=== PATIENT | male | born 1990 | race American Indian/Alaskan Native ===

== ENCOUNTER 2022-05-26 11:45 | Inpatient (IN) | payer SELFPAY ==
[2022-05-26] MEDS ORDERED: SODIUM CHLORIDE 0.9% 1000 ML 1,000 ML IV ONE ×3 (12:03→17:47)
[2022-05-26] MEDS ORDERED: charcoal activated SOLUTION 25 GM/120 ML PO ONE (12:04)
[2022-05-26 12:25] LABS: Basophils # (Auto) 0.1 K/mm3 (0.0-0.1); Basophils % (Auto) 1.1 % (0.0-1.8); Eosinophils # (Auto) 0.1 K/mm3 (0.0-0.4); Eosinophils % (Auto) 1.6 % (0.0-4.3); Hematocrit 43.1 % (35.5-45.6); Lymphocytes # (Auto) 1.9 K/mm3 (1.2-5.4); Lymphocytes % (Auto) 28.6 % (13.4-35.0); Mean Corpuscular HGB Conc 33 % (32-34); Mean Corpuscular Volume 94 fl (84-94); Monocytes # (Auto) 0.6 K/mm3 (0.0-0.8); Monocytes % (Auto) 8.4 % (0.0-7.3); Platelet Count 233 K/mm3 (140-440); Red Blood Count 4.58 M/mm3 (3.65-5.03); Red Cell Distribution Width 14.5 % (13.2-15.2)
--- NOTE | 2022-05-26 12:34 | XRay Report ---
CHEST 1 VIEW 05/26/2022 12:10 PM INDICATION / CLINICAL INFORMATION: Altered Mental Status. COMPARISON: None available. FINDINGS: SUPPORT DEVICES: None. HEART / MEDIASTINUM: No significant abnormality. LUNGS / PLEURA: No significant pulmonary or pleural abnormality. No pneumothorax. ADDITIONAL FINDINGS: No significant additional findings. IMPRESSION: 1. No acute findings. Signer Name: Maxx Hunt Jr, MD Signed: 05/26/2022 12:30 PM Workstation Name: [id number]
[2022-05-26 12:38] LABS: INR 0.94 (0.87-1.13)
[2022-05-26 12:46] LABS: Alanine Aminotransferase 17 units/L (7-56); Albumin 4.2 g/dL (3.9-5); BUN/Creatinine Ratio 9; Blood Urea Nitrogen 7 mg/dL (9-20); Calcium 8.8 mg/dL (8.4-10.2); Hemolysis Index 8
[2022-05-26] MEDS ORDERED: DEXTROSE 5% IV ONE ×3 (12:54→17:56)
[2022-05-26] MEDS ORDERED: ACETADOTE IV ONE ×3 (12:54→17:56)
[2022-05-26] MEDS ORDERED: WATER IV ONE ×3 (12:54→17:56)
--- NOTE | 2022-05-26 13:31 | History and Physical Report ---
History of Present Illness Chief complaint: I took a bunch of pills History of present illness: 31 YO Male with MDD with prior Suicide Attempt presents to ED for evaluation. Patient reports "I took a bunch of pills". Patient states that he ingested approximately 20 Tylenol 500 mg tablets within the past 1 hour in an attempt to take his own life. Patient knowledges feeling depressed, hopeless, and does not have the will to live. EMS was notified and upon arrival the patient was found to be in distress and subsequently transported to [facility] for further care and evaluation of the aforementioned symptoms. The patient was seen and evaluated in the emergency department. All lab and imaging studies reviewed. Patient found to have elevated acetaminophen levels after 1 hour. Patient found to have Tylenol toxicity secondary to Tylenol overdose in a suicide attempt. A 1013 was placed. The patient was admitted to [facility] due to increased risk of worsening symptoms after medical stabilization. Poison control notified. No reports of fever, chills, chest pain, palpitation, productive cough, skin rash, recent co ntact, known exposure to COVID-19. No prior admission for review. No medication listed at time of admission for reconciliation. Advanced care planning conducted in ED. Past History Past Medical History: other (See HPI) Past Surgical History: No surgical history, Other (Reviewed) Social history: single. denies: smoking, alcohol abuse, prescription drug abuse Family history: hypertension Medications and Allergies Allergies Allergy/AdvReac Type Severity Reaction Status Date / Time No Known Allergies Allergy Verified 05/26/22 11:56 Active Meds: Active Medications Acetylcysteine 9,000 mg/ (Dextrose) 245 mls @ 200 mls/hr IV ONCE ONE Stop: 05/26/22 13:53 Acetylcysteine 3,000 mg/ (Dextrose) 515 mls @ 125 mls/hr IV ONCE ONE Stop: 05/26/22 17:55 Acetylcysteine 5,800 mg/ (Dextrose) 1,029 mls @ 62.5 mls/hr IV ONCE ONE Stop: 05/27/22 09:55 Sodium Chloride (Nacl 0.9% 1000 Ml) 1,000 mls @ 999 mls/hr IV BOLUS ONE Stop: 05/26/22 14:15 Review of Systems Constitutional: no weight loss, no weight gain, no fever, no chills Ears, nose, mouth and throat: no ear pain, no tinnitis, no decreased hearing, no nose pain, no nasal discharge Cardiovascular: no chest pain, no orthopnea, no palpitations, no rapid/irregular heart beat, no syncope Respiratory: no cough, no excessive sputum, no shortness of breath, no dyspnea on exertion Gastrointestinal: no abdominal pain, no nausea, no vomiting, no constipation, no change in bowel habits, no hematemesis Genitourinary Male: no hematuria, no flank pain, no discharge, no urinary frequency, no nocturia, no erectile dysfunction Rectal: no pain, no incontinence Musculoskeletal: no arm numbness/tingling, no shooting leg pain, no leg numbnes s/tingling Integumentary: no rash, no redness, no wounds, no jaundice Neurological: no head injury, no paralysis, no parathesias, no tingling, no seiz ures, no tremors, no ataxia Psychiatric: depression, anhedonia, irritability, sadness/tearfullness, mood swings, no anxiety Endocrine: no cold intolerance, no heat intolerance, no polyphagia, no nocturia Hematologic/Lymphatic: no easy bruising, no easy bleeding Allergic/Immunologic: no urticaria, no wheezing Exam - Constitutional Vitals: Temp Pulse Resp BP Pulse Ox 98.1 F 71 14 117/85 98 05/26/22 11:54 05/26/22 11:54 05/26/22 11:54 05/26/22 11:54 05/26/22 11:54 General appearance: Present: mild distress - EENT Eyes: Present: PERRL ENT: hearing intact, clear oral mucosa - Neck Neck: Present: supple, normal ROM - Respiratory Respiratory effort: normal Respiratory: bilateral: CTA - Cardiovascular Heart Sounds: Present: S1 & S2. Absent: rub, click - Extremities Extremities: pulses symmetrical, No edema Peripheral Pulses: within normal limits - Abdominal General gastrointestinal: Present: soft, non-tender, non-distended, normal bowel sounds Male genitourinary: Present: normal - Integumentary Integumentary: Present: clear, warm, dry - Musculoskeletal Musculoskeletal: gait normal, strength equal bilaterally - Psychiatric Psychiatric: appropriate mood/affect, intact judgment & insight - Neurologic Neurologic: CNII-XII intact, moves all extremities HEART Score - HEART Score Troponin: Troponin T < 0.010 ng/mL (0.00-0.029) 05/26/22 12:03 Results - Labs CBC & Chem 7: 05/26/22 12:03 05/26/22 12:03 Labs: Abnormal lab results 05/26/22 05/26/22 05/26/22 Range/Units 12:03 12:03 12:15 [place] % (Auto) 8.4 H (0.0-7.3) % BUN 7 L (9-20) mg/dL Glucose 105 H (75-100) mg/dL Total Creatine Kinase 181 H (55-170) units/L Salicylates < 0.3 L (2.8-20.0) mg/dL Acetaminophen (10.0-30.0) ug/mL 05/26/22 Range/Units 12:15 [place] % (Auto) (0.0-7.3) % BUN (9-20) mg/dL Glucose (75-100) mg/dL Total Creatine Kinase (55-170) units/L Salicylates (2.8-20.0) mg/dL Acetaminophen 147.8 H (10.0-30.0) ug/mL Assessment and Plan - Patient Problems (1) Tylenol toxicity Current Visit: Yes Status: Acute Qualifiers: Encounter type: initial encounter Injury intent: intentional self-harm Qualified Code(s): T39.1X2A - Poisoning by 4-Aminophenol derivatives, intentional self-harm, initial encounter Plan to address problem: Post control notified, initiate therapy with Mucomyst, serial acetaminophen levels, IV fluid resuscitation therapy as clinical indicated, supportive care. (2) Suicide attempt Current Visit: Yes Status: Acute Plan to address problem: 1013 in place, mental health team consulted. (3) Major depression Current Visit: Yes Status: Acute Qualifiers: Major depression episode severity: severe Plan to address problem: Mental health team consulted, supportive care, one-to-one sitter. (4) DVT prophylaxis Current Visit: Yes Status: Acute Plan to address problem: SCDs bilateral lower extremities while in bed (5) Advance care planning Current Visit: Yes Status: Acute Plan to address problem: Disease education conducted, care plan discussed, diagnoses discussed, prognosis discussed, patient is full code, +30 minutes. (6) Preventative health care Current Visit: Yes Status: Acute Plan to address problem: Patient counseled regarding risk factor reduction, safe driving, outpatient mental health follow-up, outpatient follow-up with primary care physician for all age and risk factor appropriate screening test. +30 minutes.
--- NOTE | 2022-05-26 13:38 | Emergency Department Report ---
ED General Adult HPI - General Chief complaint: Overdose Stated complaint: SUICIDE ATTEMPT PUI?: No Time Seen by Provider: 05/26/22 12:00 Source: EMS Mode of arrival: Stretcher Limitations: No Limitations - History of Present Illness Initial comments: pt reported he took 20, 500mg tylenol within the past hour in a suicide attempt -: Sudden, hour(s) (1) Severity scale (0 -10): 0 Improves with: none Worsens with: none Associated Symptoms: nausea/vomiting. denies: denies other symptoms, confusion, chest pain, headaches, loss of appetite, malaise Treatments Prior to Arrival: none - Related Data Allergies Allergy/AdvReac Type Severity Reaction Status Date / Time No Known Allergies Allergy Verified 05/26/22 11:56 ED Review of Systems ROS: Stated complaint: SUICIDE ATTEMPT Other details as noted in HPI Constitutional: denies: chills, fever Eyes: denies: eye pain, eye discharge, vision change ENT: denies: ear pain, throat pain Respiratory: denies: cough, shortness of breath, wheezing Cardiovascular: denies: chest pain, palpitations Endocrine: no symptoms reported Gastrointestinal: denies: abdominal pain, nausea, diarrhea Genitourinary: denies: urgency, dysuria Musculoskeletal: denies: back pain, joint swelling, arthralgia Skin: denies: rash, lesions Neurological: denies: headache, weakness, paresthesias Psychiatric: denies: anxiety, depression Hematological/Lymphatic: denies: easy bleeding, easy bruising ED Past Medical Hx - Past Medical History Previous Medical History?: No Hx Hypertension: No Additional medical history: previous suicide attempt ED Physical Exam - General Limitations: No Limitations General appearance: alert, anxious - Head Head exam: Present: atraumatic, normocephalic - Eye Eye exam: Present: normal appearance - ENT ENT exam: Present: mucous membranes moist - Neck Neck exam: Present: normal inspection - Respiratory Respiratory exam: Present: normal lung sounds bilaterally. Absent: respiratory distress - Cardiovascular Cardiovascular Exam: Present: regular rate, normal rhythm. Absent: systolic murmur, diastolic murmur, rubs, gallop - GI/Abdominal GI/Abdominal exam: Present: soft, normal bowel sounds - Rectal Rectal exam: Present: deferred - Extremities Exam Extremities exam: Present: normal inspection - Back Exam Back exam: Present: normal inspection - Neurological Exam Neurological exam: Present: alert, oriented X3 - Psychiatric Psychiatric exam: Present: normal affect, normal mood - Skin Skin exam: Present: warm, dry, intact, normal color. Absent: rash ED Course Vital Signs 05/26/22 11:54 Temperature 98.1 F Pulse Rate 71 Respiratory 14 Rate Blood Pressure 117/85 [Left] O2 Sat by Pulse 98 Oximetry ED Medical Decision Making - Lab Data Result diagrams: 05/26/22 12:03 05/26/22 12:03 - EKG Data -: EKG Interpreted by Me EKG shows normal: sinus rhythm Rate: normal - Radiology Data Radiology results: report reviewed, image reviewed - Medical Decision Making Poison control contacted , first level is 147 will start NAC ,1013 Critical care attestation.: If time is entered above; I have spent that time in minutes in the direct care of this critically ill patient, excluding procedure time. ED Disposition Clinical Impression: Overdose by acetaminophen, Suicide attempt Disposition: ADMITTED INPATIENT Is pt being admited?: Yes Does the pt Need Aspirin: No Condition: Critical
[2022-05-26] MEDS ORDERED: IBUPROFEN 600 MG TAB PO PRN (14:00)
[2022-05-26] MEDS ORDERED: HYDROmorphone 0.5 MG/0.5 ML INJ IV PRN (14:00)
[2022-05-26] MEDS ORDERED: ALBUTEROL 2.5 MG/3 ML NEBU IH PRN (14:00)
[2022-05-26] MEDS ORDERED: MORPHINE 2 MG/1 ML INJ IV PRN (14:00)
[2022-05-26] MEDS ORDERED: oxyCODONE /ACETAMINOPHEN 5-325MG TAB PO PRN (14:00)
--- NOTE | 2022-05-26 14:48 | Procedure Note ---
Date of procedure: 05/26/22 Pre-op diagnosis: Tylenol Overdose Post-op diagnosis: same Procedure: Right femoral central lumen catheter placed under ultrasound guidance After informed consent was obtained the patient was prepped and draped in usual sterile fashion. A timeout was taken to verify the correct patient, correct procedure, and the correct operative site with the patient's nurse at bedside. Local anesthesia obtained with 1% lidocaine. The Seldinger technique was utiliz to access the right femoral vein under ultrasound guidance. A seeker needle was then advanced into the right femoral vein without difficulty. A guidewire was then advanced via the seeker needle into the right femoral vein and the seeker needle subsequently removed over the guidewire. A scalpel was used to incise the skin at the insertion site. A dilator was then advanced over the guidewire into the right femoral vein and subsequently removed. A preflush triple-lumen catheter was then advanced into the right femoral vein without difficulty and the guidewire subsequently removed. All 3 ports flush and drawl with ease. 3-0 silk suture was then utilized to suture the triple-lumen catheter in place. A Biopatch was placed at the insertion site. A sterile dressing was utilized to cover the triple-lumen catheter. Complications none. Estimated blood loss minimal. Specimens none Anesthesia: local Surgeon: GERTRUDE AMAYA Estimated blood loss: minimal Pathology: none Condition: stable Disposition: other
[2022-05-26] MEDS ORDERED: ONDANSETRON 4 MG/2 ML INJ IV PRN (16:19)
[2022-05-26 20:42] LABS: Benzodiazepines Screen,Urine Negative; Cannabinoid Screen,Urine Negative; Cocaine Screen,Urine Negative; Methadone Screen,Urine Negative; Opiate Screen,Urine Negative
[2022-05-26 20:56] LABS: Amphetamine Screen,Urine Positive
[2022-05-26 21:15] LABS: Bacteria,Urine 1+ /HPF (Negative); Mucus,Urine 3+ /HPF
[2022-05-26 21:33] LABS: Bilirubin,Urine Negative (Negative); Blood,Urine Negative (Negative); Color,Urine Yellow (Yellow); Urobilinogen,Urine < 2.0 mg/dL (<2.0)
[2022-05-27 04:51] LABS: Basophils # (Auto) 0.1 K/mm3 (0.0-0.1); Basophils % (Auto) 0.6 % (0.0-1.8); Eosinophils # (Auto) 0.1 K/mm3 (0.0-0.4); Eosinophils % (Auto) 1.3 % (0.0-4.3); Hematocrit 40.2 % (35.5-45.6); Hemoglobin 12.9 gm/dl (11.8-15.2); Lymphocytes # (Auto) 2.7 K/mm3 (1.2-5.4); Lymphocytes % (Auto) 29.4 % (13.4-35.0); Mean Corpuscular HGB Conc 32 % (32-34); Mean Corpuscular Volume 95 fl (84-94); Monocytes # (Auto) 0.7 K/mm3 (0.0-0.8); Monocytes % (Auto) 7.8 % (0.0-7.3); Platelet Count 206 K/mm3 (140-440); Red Blood Count 4.25 M/mm3 (3.65-5.03); Red Cell Distribution Width 14.6 % (13.2-15.2)
[2022-05-27 05:11] LABS: Alanine Aminotransferase 19 units/L (7-56); Albumin 3.3 g/dL (3.9-5); Blood Urea Nitrogen 6 mg/dL (9-20); Calcium 8.2 mg/dL (8.4-10.2); Hemolysis Index 4
[2022-05-27 05:12] LABS: BUN/Creatinine Ratio 10
--- NOTE | 2022-05-27 10:31 | Electrocardiograph Report ---
[facility] Test Date: 2022-05-26 Test Time: 14:56:40 Pat Name: VIOLA BOYCE Department: Room: A266 1 Gender: M Sagger Soak: FOX : 1990 Requested By: STACY ORTA Order Number: [id number] Reading MD: Bebeto Parham Measurements Intervals [place] Rate: 57 P: 17 RI: 189 QRS: 68 QRSD: 85 T: 42 QT: 401 QTc: 389 Interpretive Statements Sinus bradycardia ST elev, probable normal early repol pattern No previous ECG available for comparison Electronically Signed On 05-27-2022 10:31:12 EDT by Bebeto Parham
--- NOTE | 2022-05-27 11:24 | Progress Note ---
Assessment and Plan Assessment and plan: 31 YO Male with MDD with prior Suicide Attempt presents to ED for evaluation. Patient reports "I took a bunch of pills". Patient states that he ingested approximately 20 Tylenol 500 mg tablets within the past 1 hour in an attempt to take his own life. Patient knowledges feeling depressed, hopeless, and does not have the will to live. EMS was notified and upon arrival the patient was found to be in distress and subsequently transported to [facility] for further care and evaluation of the aforementioned symptoms. The patient was seen and evaluated in the emergency department. All lab and imaging studies reviewed. Patient found to have elevated acetaminophen levels after 1 hour. Patient found to have Tylenol toxicity secondary to Tylenol overdose in a suicide attempt. A 1013 was placed. The patient was admitted to [facility] due to increased risk of worsening symptoms after medical stabilization. Poison control notified. No reports of fever, chills, chest pain, palpitation, productive cough, skin rash, recent contact, known exposure to COVID-19. No prior admission for review. No medication listed at time of admission for reconciliation. Advanced care planning conducted in ED. 05/27: Patient seen and examined discussed extensively still feels suicidal. Of gone ahead to consult psych team for further management. Continue 1013 at this time until evaluated by psych team. Also discussed her CODE STATUS with the patient for 35 minutes discussing the impact of his clinical condition and also the decision he made he verbalized understanding wants to be full code. Preventive care discussion had with the patient on liver management major depression social support services that is available patient verbalized understanding. He says he has a supportive family (1) Tylenol toxicityintentional overdose of acetaminophen Current Visit: Yes Status: Acute Qualifiers: Encounter type: initial encounter Injury intent: intentional self-harm Qualified Code(s): T39.1X2A - Poisoning by 4-Aminophenol derivatives, intentional self-harm, initial encounter Plan to address problem: Post control notified, initiate therapy with Mucomyst, serial acetaminophen lev els, IV fluid resuscitation therapy as clinical indicated, supportive care. Psych consult (2) Suicide attempt Current Visit: Yes Status: Acute Plan to address problem: [address]3 in place, mental health team consulted. (3) Major depression Current Visit: Yes Status: Acute Qualifiers: Major depression episode severity: severe Plan to address problem: Mental health team consulted, supportive care, one-to-one sitter. (4) amphetamine abuse (5) DVT prophylaxis Current Visit: Yes Status: Acute Plan to address problem: SCDs bilateral lower extremities while in bed (6) Advance care planning Current Visit: Yes Status: Acute Plan to address problem: Disease education conducted, care plan discussed, diagnoses discussed, prognosis discussed, patient is full code, +30 minutes. (7) Preventative health care Current Visit: Yes Status: Acute Plan to address problem: Patient counseled regarding risk factor reduction, safe driving, outpatient mental health follow-up, outpatient follow-up with primary care physician for all age and risk factor appropriate screening test. +30 minutes. History Interval history: Patient seen and examined this morning denies any chest pain nausea vomiting. Feeling depressed. Hospitalist Physical - Physical exam Narrative exam: VITAL SIGNS: Reviewed. GENERAL: The patient appears normally developed, Vital signs as documented. HEAD: No signs of head trauma. EYES: Pupils are equal. Extraocular motions intact. EARS: Hearing grossly intact. MOUTH: Oropharynx is normal. NECK: No adenopathy, no JVD. CHEST: Chest with clear breath sounds bilaterally. No wheezes, rales, or rhonchi. CARDIAC: Regular rate and rhythm. S1 and S2, without murmurs, gallops, or rubs. VASCULAR: No Edema. Peripheral pulses normal and equal in all extremities. ABDOMEN: Soft, non tender and non distended. No rebound or guarding, and no masses palpated. Bowel Sounds normal. MUSCULOSKELETAL: Good range of motion of all major joints. Extremities without clubbing, cyanosis or edema. NEUROLOGIC EXAM: Alert and oriented x 3 No focal sensory or strength deficits. Speech normal. Follows commands. PSYCHIATRIC: Mood normal. SKIN: detail exam as documented in skin assessment - Constitutional Vitals: Temp Pulse Resp BP Pulse Ox 98.1 F 53 L 14 114/73 96 05/26/22 11:54 05/27/22 06:16 05/27/22 06:16 05/27/22 06:16 05/27/22 06:16 General appearance: Present: mild distress HEART Score - HEART Score Troponin: Troponin T < 0.010 ng/mL (0.00-0.029) 05/26/22 12:03 Results - Labs CBC & Chem 7: 05/27/22 04:13 05/27/22 04:13 Labs: Laboratory Last Values WBC 9.0 K/mm3 (4.5-11.0) 05/27/22 04:13 RBC 4.25 M/mm3 (3.65-5.03) 05/27/22 04:13 Hgb 12.9 gm/dl (11.8-15.2) 05/27/22 04:13 Hct 40.2 % (35.5-45.6) 05/27/22 04:13 MCV 95 fl (84-94) H 05/27/22 04:13 MCH 30 pg (28-32) 05/27/22 04:13 MCHC 32 % (32-34) 05/27/22 04:13 RDW 14.6 % (13.2-15.2) 05/27/22 04:13 Plt Count 206 K/mm3 (140-440) 05/27/22 04:13 Lymph % (Auto) 29.4 % (13.4-35.0) 05/27/22 04:13 [place] % (Auto) 7.8 % (0.0-7.3) H 05/27/22 04:13 Eos % (Auto) 1.3 % (0.0-4.3) 05/27/22 04:13 Baso % (Auto) 0.6 % (0.0-1.8) 05/27/22 04:13 Lymph # (Auto) 2.7 K/mm3 (1.2-5.4) 05/27/22 04:13 [place] # (Auto) 0.7 K/mm3 (0.0-0.8) 05/27/22 04:13 Eos # (Auto) 0.1 K/mm3 (0.0-0.4) 05/27/22 04:13 Baso # (Auto) 0.1 K/mm3 (0.0-0.1) 05/27/22 04:13 Seg Neutrophils % 60.9 % (40.0-70.0) 05/27/22 04:13 Seg Neutrophils # 5.5 K/mm3 (1.8-7.7) 05/27/22 04:13 PT 13.6 Sec. (12.2-14.9) 05/26/22 12:03 INR 0.94 (0.87-1.13) 05/26/22 12:03 Sodium 139 mmol/L (137-145) 05/27/22 04:13 Potassium 3.7 mmol/L (3.6-5.0) 05/27/22 04:13 Chloride 110.2 mmol/L (98-107) H 05/27/22 04:13 Carbon Dioxide 21 mmol/L (22-30) L 05/27/22 04:13 Anion Gap 12 mmol/L 05/27/22 04:13 BUN 6 mg/dL (9-20) L 05/27/22 04:13 Creatinine 0.6 mg/dL (0.8-1.3) L 05/27/22 04:13 Estimated GFR > 60 ml/min 05/27/22 04:13 BUN/Creatinine Ratio 10 % 05/27/22 04:13 Glucose 88 mg/dL (75-100) 05/27/22 04:13 Calcium 8.2 mg/dL (8.4-10.2) L 05/27/22 04:13 Total Bilirubin 0.60 mg/dL (0.1-1.2) 05/27/22 04:13 AST 15 units/L (5-40) 05/27/22 04:13 ALT 19 units/L (7-56) 05/27/22 04:13 Alkaline Phosphatase 56 units/L (35-129) 05/27/22 04:13 Total Creatine Kinase 181 units/L (55-170) H 05/26/22 12:03 Troponin T < 0.010 ng/mL (0.00-0.029) 05/26/22 12:03 Total Protein 5.2 g/dL (6.3-8.2) L 05/27/22 04:13 Albumin 3.3 g/dL (3.9-5) L 05/27/22 04:13 Albumin/Globulin Ratio 1.7 % 05/27/22 04:13 Urine Color Yellow (Yellow) 05/26/22 16:42 Urine Turbidity Hazy (Clear) 05/26/22 16:42 Urine pH 6.0 (5.0-7.0) 05/26/22 16:42 Ur Specific [place] 1.020 (1.003-1.030) 05/26/22 16:42 Urine Protein 30 mg/dl mg/dL (Negative) 05/26/22 16:42 Urine Glucose (UA) Negative mg/dL (Negative) 05/26/22 16:42 Urine Ketones Negative mg/dL (Negative) 05/26/22 16:42 Urine Blood Negative (Negative) 05/26/22 16:42 Urine Nitrite Negative (Negative) 05/26/22 16:42 Ur Reducing Substances Not Reportable 05/26/22 16:42 Urine Bilirubin Negative (Negative) 05/26/22 16:42 Urine Ictotest Not Reportable 05/26/22 16:42 Urine Urobilinogen < 2.0 mg/dL (<2.0) 05/26/22 16:42 Ur Leukocyte Esterase Negative (Negative) 05/26/22 16:42 Urine WBC (Auto) 156.0 /HPF (0.0-6.0) H 05/26/22 16:42 Urine RBC (Auto) 13.0 /HPF (0.0-6.0) 05/26/22 16:42 U Epithel Cells (Auto) 7.0 /HPF (0-13.0) 05/26/22 16:42 Urine Bacteria (Auto) 1+ /HPF (Negative) 05/26/22 16:42 Urine WBC Clumps 2+ /HPF 05/26/22 16:42 Urine Mucus 3+ /HPF 05/26/22 16:42 Urine Yeast (Budding) 1+ /HPF 05/26/22 16:42 Salicylates < 0.3 mg/dL (2.8-20.0) L 05/26/22 12:15 Urine Opiates Screen Negative 05/26/22 16:42 Urine Methadone Screen Negative 05/26/22 16:42 Acetaminophen 147.8 ug/mL (10.0-30.0) H 05/26/22 12:15 Ur Barbiturates Screen Negative 05/26/22 16:42 Ur Phencyclidine Scrn Negative 05/26/22 16:42 Ur Amphetamines Screen Positive 05/26/22 16:42 U Benzodiazepines Scrn Negative 05/26/22 16:42 Urine Cocaine Screen Negative 05/26/22 16:42 U Marijuana (THC) Screen Negative 05/26/22 16:42 Drugs of Abuse Note Disclamer 05/26/22 16:42 Plasma/Serum Alcohol < 0.01 % (0-0.07) 05/26/22 12:15 Active Medications - Current Medications Current Medications: Generic Name Dose Route Start Last Admin Trade Name Freq PRN Reason Stop Dose Admin Albuterol 2.5 mg 05/26/22 14:00 Albuterol 2.5 Mg/3 Ml Nebu IH Q3HRT PRN Shortness Of Breath Hydromorphone HCl 0.5 mg 05/26/22 14:00 Hydromorphone 0.5 Mg/0.5 Ml Inj IV Q23H PRN Pain , Severe (7-10) Ibuprofen 600 mg 05/26/22 14:00 Ibuprofen 600 Mg Tab PO Q6H PRN Pain, Mild (1-3) Morphine Sulfate 2 mg 05/26/22 14:00 Morphine 2 Mg/1 Ml Inj IV Q8H PRN Pain, Moderate (4-6) Ondansetron HCl 4 mg 05/26/22 16:19 Ondansetron 4 Mg/2 Ml Inj IV Q8H PRN Nausea And Vomiting Oxycodone/Acetaminophen 1 tab 05/26/22 14:00 Oxycodone /Acetaminophen 5-325mg Tab PO Q16H PRN Pain, Moderate (4-6) Sodium Chloride 10 ml 05/26/22 22:00 05/27/22 10:28 Sodium Chloride 0.9% 10 Ml Flush Syringe IV 05/31/22 21:59 10 ml BID VANESSA Administration Sodium Chloride 10 ml 05/26/22 13:31 Sodium Chloride 0.9% 10 Ml Flush Syringe IV 05/31/22 13:30 PRN PRN LINE FLUSH
--- NOTE | 2022-05-27 11:37 | Consultation ---
History of Present Illness - Reason for Consult Consult date: 05/27/22 Reason for consult: intentional overdose - History of Present Psychiatric Illness The patient was seen today. He says he took about 50 tylenol in an attempt to kill himself. The patient says he and his are always up and down. He says they can't get past certain discussions that he assumes they are over before his brings them back up. The patient verbalized being depressed and states that everyone would be better off if he was . He says he hardly sleeps when he's at home. He says he constantly feels down all the time. Discussed with the patient coping skills and the need for ongoing therapy. He says he was seeing a therapist last year. The patient says he was diagnosed with depression and started on Zoloft by his outpatient provider at the time. He says he never went and picked up the scripts. The patient says he's attempted suicide in the past. He denies illicit drug use, but his urine is positive for methamphetamine. He denies hallucinations of any kind. PAST PSYCHIATRIC HISTORY: Diagnoses: Major depressive disorder Suicide attempts or Self-harm behavior: Yes Prior psychiatric hospitalizations: yes Substance Abuse history: denies, but positive for methamphetamine Previous psychiatric medications tried: zoloft Outpatient treatment: Denies PAST MEDICAL HISTORY: None reported Family Psychiatric History: None reported or documented SOCIAL HISTORY Marital Status: Living Arrangements: Family Employment Status: Employed Access to guns/weapons: Denies Education: History of Abuse:Denies Legal History: Denies REVIEW OF SYSTEMS Constitutional: Negative for weight loss ENT: Negative for stridor Respiratory: Negative for cough or hemoptysis All other systems reviewed and are negative MENTAL STATUS EXAMINATION General Appearance and Behavior: Age appropriate, good hygiene, wearing appropriate clothes. calm, cooperative Cooperation: Cooperative Psychomotor Behavior: Psychomotor normal Mood: depressed Affect and affective range: congruent with stated mood Thought Process: goal directed Thought Content: SI Speech: Normal tone and pace Suicidal Ideation: Yes Homicidal Ideation: Denies Hallucinations: Denies Delusions: none elicited Impulse Control: Poor Insight and Judgment: limited insight and poor judgment Memory: Limited Attention: attentive Orientation: a/o Assessment (1) Major Depressive Disorder (2) Intentional Overdose of Acetaminophen (3) Amphetamine Use Disorder Treatment Plan 1013 Zoloft 25mg po daily Depakote DR 125mg po BID Trazodone 50m po qhs Medical: per primary Sitter: defer to primary Disposition: Recommend acute psychiatric inpatient treatment Will sign off. Thanks Case staffed with Dr. Loza Medications and Allergies Allergies Allergy/AdvReac Type Severity Reaction Status Date / Time No Known Allergies Allergy Verified 05/26/22 11:56 Active Meds: Active Medications Albuterol (Albuterol 2.5 Mg/3 Ml Nebu) 2.5 mg IH Q3HRT PRN PRN Reason: Shortness Of Breath Hydromorphone HCl (Hydromorphone 0.5 Mg/0.5 Ml Inj) 0.5 mg IV Q23H PRN PRN Reason: Pain , Severe (7-10) Ibuprofen (Ibuprofen 600 Mg Tab) 600 mg PO Q6H PRN PRN Reason: Pain, Mild (1-3) Morphine Sulfate (Morphine 2 Mg/1 Ml Inj) 2 mg IV Q8H PRN PRN Reason: Pain, Moderate (4-6) Ondansetron HCl (Ondansetron 4 Mg/2 Ml Inj) 4 mg IV Q8H PRN PRN Reason: Nausea And Vomiting Oxycodone/Acetaminophen (Oxycodone /Acetaminophen 5-325mg Tab) 1 tab PO Q16H PRN PRN Reason: Pain, Moderate (4-6) Sodium Chloride (Sodium Chloride 0.9% 10 Ml Flush Syringe) 10 ml IV BID VANESSA Stop: 05/31/22 21:59 Last Admin: 05/27/22 10:28 Dose: 10 ml Sodium Chloride (Sodium Chloride 0.9% 10 Ml Flush Syringe) 10 ml IV PRN PRN PRN Reason: LINE FLUSH Stop: 05/31/22 13:30 Mental Status Exam - Vital signs Last Vital Signs Temp 98.1 F 05/26/22 11:54 Pulse 53 L 05/27/22 06:16 Resp 14 05/27/22 06:16 BP 114/73 05/27/22 06:16 Pulse Ox 96 05/27/22 06:16 Results Result Diagrams: 05/27/22 04:13 05/27/22 04:13 Abnormal lab results 05/26/22 05/26/22 05/26/22 Range/Units 12:03 12:03 12:15 MCV (84-94) fl Hardy % (Auto) 8.4 H (0.0-7.3) % Chloride (98-107) mmol/L Carbon Dioxide (22-30) mmol/L BUN 7 L (9-20) mg/dL Creatinine (0.8-1.3) mg/dL Glucose 105 H (75-100) mg/dL Calcium (8.4-10.2) mg/dL Total Creatine Kinase 181 H (55-170) units/L Total Protein (6.3-8.2) g/dL Albumin (3.9-5) g/dL Urine WBC (Auto) (0.0-6.0) /HPF Salicylates < 0.3 L (2.8-20.0) mg/dL Acetaminophen (10.0-30.0) ug/mL 05/26/22 05/26/22 05/27/22 Range/Units 12:15 16:42 04:13 MCV 95 H (84-94) fl Hardy % (Auto) 7.8 H (0.0-7.3) % Chloride (98-107) mmol/L Carbon Dioxide (22-30) mmol/L BUN (9-20) mg/dL Creatinine (0.8-1.3) mg/dL Glucose (75-100) mg/dL Calcium (8.4-10.2) mg/dL Total Creatine Kinase (55-170) units/L Total Protein (6.3-8.2) g/dL Albumin (3.9-5) g/dL Urine WBC (Auto) 156.0 H (0.0-6.0) /HPF Salicylates (2.8-20.0) mg/dL Acetaminophen 147.8 H (10.0-30.0) ug/mL 05/27/22 Range/Units 04:13 MCV (84-94) fl Hardy % (Auto) (0.0-7.3) % Chloride 110.2 H (98-107) mmol/L Carbon Dioxide 21 L (22-30) mmol/L BUN 6 L (9-20) mg/dL Creatinine 0.6 L (0.8-1.3) mg/dL Glucose (75-100) mg/dL Calcium 8.2 L (8.4-10.2) mg/dL Total Creatine Kinase (55-170) units/L Total Protein 5.2 L (6.3-8.2) g/dL Albumin 3.3 L (3.9-5) g/dL Urine WBC (Auto) (0.0-6.0) /HPF Salicylates (2.8-20.0) mg/dL Acetaminophen (10.0-30.0) ug/mL All other labs normal.
[2022-05-27] MEDS: SERTRALINE 25 MG TAB PO SCH (13:41)
[2022-05-27] MEDS: DIVALPROEX DR 125 MG TAB PO SCH ×2 (13:41→22:00)
[2022-05-27 14:30] LABS: INR 1.11 (0.87-1.13)
[2022-05-27 14:33] LABS: Alanine Aminotransferase 19 units/L (7-56); Albumin 3.5 g/dL (3.9-5)
[2022-05-27 14:35] LABS: Bilirubin,Direct < 0.2 mg/dL (0-0.2)
[2022-05-27] MEDS: traZODone 50 MG TAB PO SCH (21:58)
[2022-05-28] MEDS: SERTRALINE 25 MG TAB PO SCH (09:29)
[2022-05-28] MEDS: DIVALPROEX DR 125 MG TAB PO SCH (09:29)
--- NOTE | 2022-05-28 13:37 | Progress Note ---
Assessment and Plan Assessment and plan: 31 YO Male with MDD with prior Suicide Attempt presents to ED for evaluation. Patient reports "I took a bunch of pills". Patient states that he ingested approximately 20 Tylenol 500 mg tablets within the past 1 hour in an attempt to take his own life. Patient knowledges feeling depressed, hopeless, and does not have the will to live. EMS was notified and upon arrival the patient was found to be in distress and subsequently transported to [facility] for further care and evaluation of the aforementioned symptoms. The patient was seen and evaluated in the emergency department. All lab and imaging studies reviewed. Patient found to have elevated acetaminophen levels after 1 hour. Patient found to have Tylenol toxicity secondary to Tylenol overdose in a suicide attempt. A 1013 was placed. The patient was admitted to [facility] due to increased risk of worsening symptoms after medical stabilization. Poison control notified. No reports of fever, chills, chest pain, palpitation, productive cough, skin rash, recent contact, known exposure to COVID-19. No prior admission for review. No medication listed at time of admission for reconciliation. Advanced care planning conducted in ED. 05/27: Patient seen and examined discussed extensively still feels suicidal. Of gone ahead to consult psych team for further management. Continue 1013 at this time until evaluated by psych team. Also discussed her CODE STATUS with the patient for 35 minutes discussing the impact of his clinical condition and also the decision he made he verbalized understanding wants to be full code. Preventive care discussion had with the patient on liver management major depression social support services that is available patient verbalized understanding. He says he has a supportive family 05/28: Repeat Tylenol level is normalized. Patient was seen by psych recommended inpatient psych placement. I understand from the nurse that the has some concerns about starting medication we will discuss with the spouse and also with the psych team. Awaiting placement or revocation by psych team. Was noted today to have pyuria although no symptoms although sometimes complains of pain with urination. We will treat empirically with Keflex for 3 days. For now continue 1013 (1) Tylenol toxicityintentional overdose of acetaminophen Current Visit: Yes Status: Acute Qualifiers: Encounter type: initial encounter Injury intent: intentional self-harm Qualified Code(s): T39.1X2A - Poisoning by 4-Aminophenol derivatives, intentional self-harm, initial encounter Plan to address problem: Post control notified, initiate therapy with Mucomyst, serial acetaminophen levels, IV fluid resuscitation therapy as clinical indicated, supportive care. Psych consult (2) Suicide attempt Current Visit: Yes Status: Acute Plan to address problem: [address]3 in place, mental health team consulted. (3) Major depression Current Visit: Yes Status: Acute Qualifiers: Major depression episode severity: severe Plan to address problem: Mental health team consulted, supportive care, one-to-one sitter. (4) amphetamine abuse (5) acute cystitis (6) DVT prophylaxis Current Visit: Yes Status: Acute Plan to address problem: SCDs bilateral lower extremities while in bed (7) Advance care planning Current Visit: Yes Status: Acute Plan to address problem: Disease education conducted, care plan discussed, diagnoses discussed, prognosis discussed, patient is full code, +30 minutes. (8) Preventative health care Current Visit: Yes Status: Acute Plan to address problem: Patient counseled regarding risk factor reduction, safe driving, outpatient mental health follow-up, outpatient follow-up with primary care physician for all age and risk factor appropriate screening test. +30 minutes. History Interval history: Patient seen and examined this morning denies any chest pain nausea vomiting. States that he is feeling somewhat better Hospitalist Physical - Physical exam Narrative exam: VITAL SIGNS: Reviewed. GENERAL: The patient appears normally developed, Vital signs as documented. HEAD: No signs of head trauma. EYES: Pupils are equal. Extraocular motions intact. EARS: Hearing grossly intact. MOUTH: Oropharynx is normal. NECK: No adenopathy, no JVD. CHEST: Chest with clear breath sounds bilaterally. No wheezes, rales, or rhonchi. CARDIAC: Regular rate and rhythm. S1 and S2, without murmurs, gallops, or rubs. VASCULAR: No Edema. Peripheral pulses normal and equal in all extremities. ABDOMEN: Soft, non tender and non distended. No rebound or guarding, and no masses palpated. Bowel Sounds normal. MUSCULOSKELETAL: Good range of motion of all major joints. Extremities without clubbing, cyanosis or edema. NEUROLOGIC EXAM: Alert and oriented x 3 No focal sensory or strength deficits. Speech normal. Follows commands. PSYCHIATRIC: Mood normal. SKIN: detail exam as documented in skin assessment - Constitutional Vitals: Temp Pulse Resp BP Pulse Ox 98.3 F 64 18 115/72 97 05/28/22 10:44 05/28/22 12:37 05/28/22 12:37 05/28/22 10:44 05/28/22 12:37 General appearance: Present: mild distress HEART Score - HEART Score Troponin: Troponin T < 0.010 ng/mL (0.00-0.029) 05/26/22 12:03 Results - Labs CBC & Chem 7: 05/27/22 04:13 05/27/22 04:13 Labs: Laboratory Last Values WBC 9.0 K/mm3 (4.5-11.0) 05/27/22 04:13 RBC 4.25 M/mm3 (3.65-5.03) 05/27/22 04:13 Hgb 12.9 gm/dl (11.8-15.2) 05/27/22 04:13 Hct 40.2 % (35.5-45.6) 05/27/22 04:13 MCV 95 fl (84-94) H 05/27/22 04:13 MCH 30 pg (28-32) 05/27/22 04:13 MCHC 32 % (32-34) 05/27/22 04:13 RDW 14.6 % (13.2-15.2) 05/27/22 04:13 Plt Count 206 K/mm3 (140-440) 05/27/22 04:13 Lymph % (Auto) 29.4 % (13.4-35.0) 05/27/22 04:13 Saunders % (Auto) 7.8 % (0.0-7.3) H 05/27/22 04:13 Eos % (Auto) 1.3 % (0.0-4.3) 05/27/22 04:13 Baso % (Auto) 0.6 % (0.0-1.8) 05/27/22 04:13 Lymph # (Auto) 2.7 K/mm3 (1.2-5.4) 05/27/22 04:13 Saunders # (Auto) 0.7 K/mm3 (0.0-0.8) 05/27/22 04:13 Eos # (Auto) 0.1 K/mm3 (0.0-0.4) 05/27/22 04:13 Baso # (Auto) 0.1 K/mm3 (0.0-0.1) 05/27/22 04:13 Seg Neutrophils % 60.9 % (40.0-70.0) 05/27/22 04:13 Seg Neutrophils # 5.5 K/mm3 (1.8-7.7) 05/27/22 04:13 PT 15.6 Sec. (12.2-14.9) H 05/27/22 09:30 INR 1.11 (0.87-1.13) 05/27/22 09:30 Sodium 139 mmol/L (137-145) 05/27/22 04:13 Potassium 3.7 mmol/L (3.6-5.0) 05/27/22 04:13 Chloride 110.2 mmol/L (98-107) H 05/27/22 04:13 Carbon Dioxide 21 mmol/L (22-30) L 05/27/22 04:13 Anion Gap 12 mmol/L 05/27/22 04:13 BUN 6 mg/dL (9-20) L 05/27/22 04:13 Creatinine 0.6 mg/dL (0.8-1.3) L 05/27/22 04:13 Estimated GFR > 60 ml/min 05/27/22 04:13 BUN/Creatinine Ratio 10 % 05/27/22 04:13 Glucose 88 mg/dL (75-100) 05/27/22 04:13 Calcium 8.2 mg/dL (8.4-10.2) L 05/27/22 04:13 Total Bilirubin 0.30 mg/dL (0.1-1.2) 05/27/22 09:30 Direct Bilirubin < 0.2 mg/dL (0-0.2) 05/27/22 09:30 Indirect Bilirubin 0.1 mg/dL 05/27/22 09:30 AST 21 units/L (5-40) 05/27/22 09:30 ALT 19 units/L (7-56) 05/27/22 09:30 Alkaline Phosphatase 55 units/L (35-129) 05/27/22 09:30 Total Creatine Kinase 181 units/L (55-170) H 05/26/22 12:03 Troponin T < 0.010 ng/mL (0.00-0.029) 05/26/22 12:03 Total Protein 5.4 g/dL (6.3-8.2) L 05/27/22 09:30 Albumin 3.5 g/dL (3.9-5) L 05/27/22 09:30 Albumin/Globulin Ratio 1.8 % 05/27/22 09:30 Urine Color Yellow (Yellow) 05/26/22 16:42 Urine Turbidity Hazy (Clear) 05/26/22 16:42 Urine pH 6.0 (5.0-7.0) 05/26/22 16:42 Ur Specific [place] 1.020 (1.003-1.030) 05/26/22 16:42 Urine Protein 30 mg/dl mg/dL (Negative) 05/26/22 16:42 Urine Glucose (UA) Negative mg/dL (Negative) 05/26/22 16:42 Urine Ketones Negative mg/dL (Negative) 05/26/22 16:42 Urine Blood Negative (Negative) 05/26/22 16:42 Urine Nitrite Negative (Negative) 05/26/22 16:42 Ur Reducing Substances Not Reportable 05/26/22 16:42 Urine Bilirubin Negative (Negative) 05/26/22 16:42 Urine Ictotest Not Reportable 05/26/22 16:42 Urine Urobilinogen < 2.0 mg/dL (<2.0) 05/26/22 16:42 Ur Leukocyte Esterase Negative (Negative) 05/26/22 16:42 Urine WBC (Auto) 156.0 /HPF (0.0-6.0) H 05/26/22 16:42 Urine RBC (Auto) 13.0 /HPF (0.0-6.0) 05/26/22 16:42 U Epithel Cells (Auto) 7.0 /HPF (0-13.0) 05/26/22 16:42 Urine Bacteria (Auto) 1+ /HPF (Negative) 05/26/22 16:42 Urine WBC Clumps 2+ /HPF 05/26/22 16:42 Urine Mucus 3+ /HPF 05/26/22 16:42 Urine Yeast (Budding) 1+ /HPF 05/26/22 16:42 Salicylates < 0.3 mg/dL (2.8-20.0) L 05/26/22 12:15 Urine Opiates Screen Negative 05/26/22 16:42 Urine Methadone Screen Negative 05/26/22 16:42 Acetaminophen 5.0 ug/mL (10.0-30.0) L 05/27/22 06:12 Ur Barbiturates Screen Negative 05/26/22 16:42 Ur Phencyclidine Scrn Negative 05/26/22 16:42 Ur Amphetamines Screen Positive 05/26/22 16:42 U Benzodiazepines Scrn Negative 05/26/22 16:42 Urine Cocaine Screen Negative 05/26/22 16:42 U Marijuana (THC) Screen Negative 05/26/22 16:42 Drugs of Abuse Note Disclamer 05/26/22 16:42 Plasma/Serum Alcohol < 0.01 % (0-0.07) 05/26/22 12:15 Vidal/IV: Voiding Method Toilet Active Medications - Current Medications Current Medications: Generic Name Dose Route Start Last Admin Trade Name Freq PRN Reason Stop Dose Admin Albuterol 2.5 mg 05/26/22 14:00 Albuterol 2.5 Mg/3 Ml Nebu IH Q3HRT PRN Shortness Of Breath Divalproex Sodium 125 mg 05/27/22 13:00 05/28/22 09:[address] 125 Mg Tab PO 125 mg BID VANESSA Administration Hydromorphone HCl 0.5 mg 05/26/22 14:00 Hydromorphone 0.5 Mg/0.5 Ml Inj IV Q23H PRN Pain , Severe (7-10) Ibuprofen 600 mg 05/26/22 14:00 Ibuprofen 600 Mg Tab PO Q6H PRN Pain, Mild (1-3) Morphine Sulfate 2 mg 05/26/22 14:00 Morphine 2 Mg/1 Ml Inj IV Q8H PRN Pain, Moderate (4-6) Ondansetron HCl 4 mg 05/26/22 16:19 Ondansetron 4 Mg/2 Ml Inj IV Q8H PRN Nausea And Vomiting Oxycodone/Acetaminophen 1 tab 05/26/22 14:00 Oxycodone /Acetaminophen 5-325mg Tab PO Q16H PRN Pain, Moderate (4-6) Sertraline HCl 25 mg 05/27/22 13:00 05/28/22 09:29 Sertraline 25 Mg Tab PO 25 mg QDAY VANESSA Administration Sodium Chloride 10 ml 05/26/22 22:00 05/28/22 09:29 Sodium Chloride 0.9% 10 Ml Flush Syringe IV 05/31/22 21:59 10 ml BID VANESSA Administration Sodium Chloride 10 ml 05/26/22 13:31 Sodium Chloride 0.9% 10 Ml Flush Syringe IV 05/31/22 13:30 PRN PRN LINE FLUSH Trazodone HCl 50 mg 05/27/22 22:00 05/27/22 21:58 Trazodone 50 Mg Tab PO 50 mg QHS VANESSA Administration
[2022-05-28] MEDS: cephALEXin 500 MG CAP PO SCH ×2 (14:18→21:44)
--- NOTE | 2022-05-28 15:33 | Progress Note ---
Subjective - Reason for Consult Consult date: 05/28/22 Reason for consult: Suicide attempt - Chief Complaint Chief complaint: The patient was seen today. He is on the phone with his . The patient pulls the phone down so I can speak with him. He no longer expresses feeling suicidal. The patient is asking if energy drinks can cause him to be positive for methamphetamines. I inform him that this is not possible. He is denying doing any drugs. The patient allows me to speak with his . He appears irritable. The patient's spouse says she is not comfortable with him being discharged. She says the patient is always depressed and constantly makes threats about ending his life. She is asking me if tylenol can make the patient positive for meth. I inform her that this is not possible. REVIEW OF SYSTEMS Constitutional: Negative for weight loss ENT: Negative for stridor Respiratory: Negative for cough or hemoptysis All other systems reviewed and are negative MENTAL STATUS EXAMINATION General Appearance and Behavior: Age appropriate, good hygiene, wearing appropriate clothes. calm, cooperative Cooperation: Cooperative Psychomotor Behavior: Psychomotor normal Mood: depressed Affect and affective range: congruent with stated mood Thought Process: goal directed Thought Content: SI Speech: Normal tone and pace Suicidal Ideation: Denies Homicidal Ideation: Denies Hallucinations: Denies Delusions: none elicited Impulse Control: Poor Insight and Judgment: limited insight and poor judgment Memory: Limited Attention: attentive Orientation: a/o Assessment (1) Major Depressive Disorder (2) Intentional Overdose of Acetaminophen (3) Amphetamine Use Disorder Treatment Plan 1013 Increase Zoloft 50mg po daily Increase Depakote DR 250mg po BID Trazodone 50m po qhs Medical: per primary Sitter: defer to primary Disposition: Recommend acute psychiatric inpatient treatment Will sign off. Thanks Case staffed with Dr. Loza Mental Status Exam - Vital signs Last Vital Signs Temp 98.3 F 05/28/22 10:44 Pulse 64 05/28/22 12:37 Resp 18 05/28/22 12:37 BP 115/72 05/28/22 10:44 Pulse Ox 97 05/28/22 12:37
[2022-05-28] MEDS: DIVALPROEX DR 250 MG TAB PO SCH (21:43)
[2022-05-28] MEDS: traZODone 50 MG TAB PO SCH (21:43)
--- NOTE | 2022-05-29 07:46 | Progress Note ---
Assessment and Plan Assessment and plan: 31 YO Male with MDD with prior Suicide Attempt presents to ED for evaluation. Patient reports "I took a bunch of pills". Patient states that he ingested approximately 20 Tylenol 500 mg tablets within the past 1 hour in an attempt to take his own life. Patient knowledges feeling depressed, hopeless, and does not have the will to live. EMS was notified and upon arrival the patient was found to be in distress and subsequently transported to [facility] for further care and evaluation of the aforementioned symptoms. The patient was seen and evaluated in the emergency department. All lab and imaging studies reviewed. Patient found to have elevated acetaminophen levels after 1 hour. Patient found to have Tylenol toxicity secondary to Tylenol overdose in a suicide attempt. A 1013 was placed. The patient was admitted to [facility] due to increased risk of worsening symptoms after medical stabilization. Poison control notified. No reports of fever, chills, chest pain, palpitation, productive cough, skin rash, recent contact, known exposure to COVID-19. No prior admission for review. No medication listed at time of admission for reconciliation. Advanced care planning conducted in ED. 05/27: Patient seen and examined discussed extensively still feels suicidal. Of gone ahead to consult psych team for further management. Continue 1013 at this time until evaluated by psych team. Also discussed her CODE STATUS with the patient for 35 minutes discussing the impact of his clinical condition and also the decision he made he verbalized understanding wants to be full code. Preventive care discussion had with the patient on liver management major depression social support services that is available patient verbalized understanding. He says he has a supportive family 05/28: Repeat Tylenol level is normalized. Patient was seen by psych recommended inpatient psych placement. I understand from the nurse that the has some concerns about starting medication we will discuss with the spouse and also with the psych team. Awaiting placement or revocation by psych team. Was noted today to have pyuria although no symptoms although sometimes complains of pain with urination. We will treat empirically with Keflex for 3 days. For now continue 1013 Discussed with the , she is concerned about the patient coming home and does not feel the patient is in the right frame of mind. She also wanted to know if the Depakote can be changed to Abilify 05/29: Patient clinically stable for discharge. Awaiting placement at this time continue current management (1) Tylenol toxicityintentional overdose of acetaminophen Current Visit: Yes Status: Acute Qualifiers: Encounter type: initial encounter Injury intent: intentional self-harm Qualified Code(s): T39.1X2A - Poisoning by 4-Aminophenol derivatives, intentional self-harm, initial encounter Plan to address problem: Post control notified, initiate therapy with Mucomyst, serial acetaminophen levels, IV fluid resuscitation therapy as clinical indicated, supportive care. Psych consult (2) Suicide attempt Current Visit: Yes Status: Acute Plan to address problem: 1013 in place, mental health team consulted. (3) Major depression Current Visit: Yes Status: Acute Qualifiers: Major depression episode severity: severe Plan to address problem: Mental health team consulted, supportive care, one-to-one sitter. (4) amphetamine abuse (5) acute cystitis (6) DVT prophylaxis Current Visit: Yes Status: Acute Plan to address problem: SCDs bilateral lower extremities while in bed (7) Advance care planning Current Visit: Yes Status: Acute Plan to address problem: Disease education conducted, care plan discussed, diagnoses discussed, prognosis discussed, patient is full code, +30 minutes. (8) Preventative health care Current Visit: Yes Status: Acute Plan to address problem: Patient counseled regarding risk factor reduction, safe driving, outpatient mental health follow-up, outpatient follow-up with primary care physician for all age and risk factor appropriate screening test. +30 minutes. History Interval history: Patient seen and examined this morning denies any chest pain nausea vomiting. States that he is feeling somewhat better Hospitalist Physical - Physical exam Narrative exam: VITAL SIGNS: Reviewed. GENERAL: The patient appears normally developed, Vital signs as documented. HEAD: No signs of head trauma. EYES: Pupils are equal. Extraocular motions intact. EARS: Hearing grossly intact. MOUTH: Oropharynx is normal. NECK: No adenopathy, no JVD. CHEST: Chest with clear breath sounds bilaterally. No wheezes, rales, or rhonchi. CARDIAC: Regular rate and rhythm. S1 and S2, without murmurs, gallops, or rubs. VASCULAR: No Edema. Peripheral pulses normal and equal in all extremities. ABDOMEN: Soft, non tender and non distended. No rebound or guarding, and no masses palpated. Bowel Sounds normal. MUSCULOSKELETAL: Good range of motion of all major joints. Extremities without clubbing, cyanosis or edema. NEUROLOGIC EXAM: Alert and oriented x 3 No focal sensory or strength deficits. Speech normal. Follows commands. PSYCHIATRIC: Mood normal. SKIN: detail exam as documented in skin assessment - Constitutional Vitals: Temp Pulse Resp BP Pulse Ox 98.3 F 55 L 16 100/55 98 05/29/22 05:49 05/29/22 05:49 05/29/22 05:49 05/29/22 05:49 05/29/22 05:49 General appearance: Present: mild distress HEART Score - HEART Score Troponin: Troponin T < 0.010 ng/mL (0.00-0.029) 05/26/22 12:03 Results - Labs CBC & Chem 7: 05/27/22 04:13 05/27/22 04:13 Labs: Laboratory Last Values WBC 9.0 K/mm3 (4.5-11.0) 05/27/22 04:13 RBC 4.25 M/mm3 (3.65-5.03) 05/27/22 04:13 Hgb 12.9 gm/dl (11.8-15.2) 05/27/22 04:13 Hct 40.2 % (35.5-45.6) 05/27/22 04:13 MCV 95 fl (84-94) H 05/27/22 04:13 MCH 30 pg (28-32) 05/27/22 04:13 MCHC 32 % (32-34) 05/27/22 04:13 RDW 14.6 % (13.2-15.2) 05/27/22 04:13 Plt Count 206 K/mm3 (140-440) 05/27/22 04:13 Lymph % (Auto) 29.4 % (13.4-35.0) 05/27/22 04:13 [place] % (Auto) 7.8 % (0.0-7.3) H 05/27/22 04:13 Eos % (Auto) 1.3 % (0.0-4.3) 05/27/22 04:13 Baso % (Auto) 0.6 % (0.0-1.8) 05/27/22 04:13 Lymph # (Auto) 2.7 K/mm3 (1.2-5.4) 05/27/22 04:13 [place] # (Auto) 0.7 K/mm3 (0.0-0.8) 05/27/22 04:13 Eos # (Auto) 0.1 K/mm3 (0.0-0.4) 05/27/22 04:13 Baso # (Auto) 0.1 K/mm3 (0.0-0.1) 05/27/22 04:13 Seg Neutrophils % 60.9 % (40.0-70.0) 05/27/22 04:13 Seg Neutrophils # 5.5 K/mm3 (1.8-7.7) 05/27/22 04:13 PT 15.6 Sec. (12.2-14.9) H 05/27/22 09:30 INR 1.11 (0.87-1.13) 05/27/22 09:30 Sodium 139 mmol/L (137-145) 05/27/22 04:13 Potassium 3.7 mmol/L (3.6-5.0) 05/27/22 04:13 Chloride 110.2 mmol/L (98-107) H 05/27/22 04:13 Carbon Dioxide 21 mmol/L (22-30) L 05/27/22 04:13 Anion Gap 12 mmol/L 05/27/22 04:13 BUN 6 mg/dL (9-20) L 05/27/22 04:13 Creatinine 0.6 mg/dL (0.8-1.3) L 05/27/22 04:13 Estimated GFR > 60 ml/min 05/27/22 04:13 BUN/Creatinine Ratio 10 % 05/27/22 04:13 Glucose 88 mg/dL (75-100) 05/27/22 04:13 Calcium 8.2 mg/dL (8.4-10.2) L 05/27/22 04:13 Total Bilirubin 0.30 mg/dL (0.1-1.2) 05/27/22 09:30 Direct Bilirubin < 0.2 mg/dL (0-0.2) 05/27/22 09:30 Indirect Bilirubin 0.1 mg/dL 05/27/22 09:30 AST 21 units/L (5-40) 05/27/22 09:30 ALT 19 units/L (7-56) 05/27/22 09:30 Alkaline Phosphatase 55 units/L (35-129) 05/27/22 09:30 Total Creatine Kinase 181 units/L (55-170) H 05/26/22 12:03 Troponin T < 0.010 ng/mL (0.00-0.029) 05/26/22 12:03 Total Protein 5.4 g/dL (6.3-8.2) L 05/27/22 09:30 Albumin 3.5 g/dL (3.9-5) L 05/27/22 09:30 Albumin/Globulin Ratio 1.8 % 05/27/22 09:30 Urine Color Yellow (Yellow) 05/26/22 16:42 Urine Turbidity Hazy (Clear) 05/26/22 16:42 Urine pH 6.0 (5.0-7.0) 05/26/22 16:42 Ur Specific [place] 1.020 (1.003-1.030) 05/26/22 16:42 Urine Protein 30 mg/dl mg/dL (Negative) 05/26/22 16:42 Urine Glucose (UA) Negative mg/dL (Negative) 05/26/22 16:42 Urine Ketones Negative mg/dL (Negative) 05/26/22 16:42 Urine Blood Negative (Negative) 05/26/22 16:42 Urine Nitrite Negative (Negative) 05/26/22 16:42 Ur Reducing Substances Not Reportable 05/26/22 16:42 Urine Bilirubin Negative (Negative) 05/26/22 16:42 Urine Ictotest Not Reportable 05/26/22 16:42 Urine Urobilinogen < 2.0 mg/dL (<2.0) 05/26/22 16:42 Ur Leukocyte Esterase Negative (Negative) 05/26/22 16:42 Urine WBC (Auto) 156.0 /HPF (0.0-6.0) H 05/26/22 16:42 Urine RBC (Auto) 13.0 /HPF (0.0-6.0) 05/26/22 16:42 U Epithel Cells (Auto) 7.0 /HPF (0-13.0) 05/26/22 16:42 Urine Bacteria (Auto) 1+ /HPF (Negative) 05/26/22 16:42 Urine WBC Clumps 2+ /HPF 05/26/22 16:42 Urine Mucus 3+ /HPF 05/26/22 16:42 Urine Yeast (Budding) 1+ /HPF 05/26/22 16:42 Salicylates < 0.3 mg/dL (2.8-20.0) L 05/26/22 12:15 Urine Opiates Screen Negative 05/26/22 16:42 Urine Methadone Screen Negative 05/26/22 16:42 Acetaminophen 5.0 ug/mL (10.0-30.0) L 05/27/22 06:12 Ur Barbiturates Screen Negative 05/26/22 16:42 Ur Phencyclidine Scrn Negative 05/26/22 16:42 Ur Amphetamines Screen Positive 05/26/22 16:42 U Benzodiazepines Scrn Negative 05/26/22 16:42 Urine Cocaine Screen Negative 05/26/22 16:42 U Marijuana (THC) Screen Negative 05/26/22 16:42 Drugs of Abuse Note Disclamer 05/26/22 16:42 Plasma/Serum Alcohol < 0.01 % (0-0.07) 05/26/22 12:15 Vidal/IV: Voiding Method Toilet Active Medications - Current Medications Current Medications: Generic Name Dose Route Start Last Admin Trade Name Freq PRN Reason Stop Dose Admin Albuterol 2.5 mg 05/26/22 14:00 Albuterol 2.5 Mg/3 Ml Nebu IH Q3HRT PRN Shortness Of Breath Cephalexin 500 mg 05/28/22 14:00 05/28/22 21:44 Cephalexin 500 Mg Cap PO 05/30/22 22:01 500 mg Q12HR VANESSA Administration Protocol Divalproex Sodium 250 mg 05/28/22 22:00 05/28/22 21:[address] 250 Mg Tab PO 250 mg BID VANESSA Administration Hydromorphone HCl 0.5 mg 05/26/22 14:00 Hydromorphone 0.5 Mg/0.5 Ml Inj IV Q23H PRN Pain , Severe (7-10) Ibuprofen 600 mg 05/26/22 14:00 Ibuprofen 600 Mg Tab PO Q6H PRN Pain, Mild (1-3) Morphine Sulfate 2 mg 05/26/22 14:00 Morphine 2 Mg/1 Ml Inj IV Q8H PRN Pain, Moderate (4-6) Ondansetron HCl 4 mg 05/26/22 16:19 Ondansetron 4 Mg/2 Ml Inj IV Q8H PRN Nausea And Vomiting Oxycodone/Acetaminophen 1 tab 05/26/22 14:00 Oxycodone /Acetaminophen 5-325mg Tab PO Q16H PRN Pain, Moderate (4-6) Sertraline HCl 50 mg 05/29/22 10:00 Sertraline 50 Mg Tab PO QDAY VANESSA Sodium Chloride 10 ml 05/26/22 22:00 05/28/22 21:44 Sodium Chloride 0.9% 10 Ml Flush Syringe IV 05/31/22 21:59 10 ml BID VANESSA Administration Sodium Chloride 10 ml 05/26/22 13:31 Sodium Chloride 0.9% 10 Ml Flush Syringe IV 05/31/22 13:30 PRN PRN LINE FLUSH Trazodone HCl 50 mg 05/27/22 22:00 05/28/22 21:43 Trazodone 50 Mg Tab PO 50 mg QHS VANESSA Administration Nutrition/Malnutrition Assess - Dietary Evaluation Nutrition/Malnutrition Findings: Nutrition Notes Start: 05/28/22 16:57 Freq: Status: Active Protocol: Document 05/28/22 16:57 ISAI (Rec: 05/28/22 17:13 ISAI [id number]) Nutrition Notes Need for Assessment generated from: protection consultant Initial or Follow up Assessment Other Pertinent Diagnosis Suicide Attempt, OTC Drug Overdose, Depression, Cystitis . Current Diet Regular Diet (since D 05/26). Labs/Tests 05/28: Cl 110.2, CO2 21, BUN 6 , Crea 0.6, Ca 8.2. Pertinent Medications 05/28: Nutritionally unremarkable. Height 5 ft 8 in Weight 72.57 kg [place] Body Weight (kg) 70.00 BMI 24.3 Intake Prior to Admission Good Weight change and time frame Pt denies having loss body weight LAP [employer]. Weight Status Appropriate Subjective/Other Information RD consult for skin risk assessment. Pt's PO intake of meals has been Good (75-100%) and well tolerated, according to ADL notes. Pt is on Room Air, O2 saturation @ 97%, according to Physical Assessment History notes. Code 1013 placed on 05/26, according to Progress notes. Pt shows no signs of concern for skin risk at the time, according to Physical Assessment History notes. Percent of energy/protein needs met: Prescribed Regular Diet provides for energy/protein needs (2,289 Kcal/89 g) during LOS. Burn Absent Trauma Absent GI Symptoms None Food Allergy No Skin Integrity/Comment Assessment WNL. Current % PO Good (75-100%) Minimum of two criteria No Fluid Accumulation N/A Reduced Storeroom Keeper Strength N/A (non-severe) Protein-Calorie Malnutrition N\\A #1 Nutrition Diagnosis No nutrition diagnosis at this time Is patient on ventilator? No Is Patient Ambulatory and/or Out of Bed Yes REE-([place] or-ambulatory/OOB) [ 2151.760 [id number]] Kcal/Kg value to use for calculation 26 Approximate Energy Requirements Using 1887 kcal/Kg Calculation Used for Recommendations Kcal/kg Additional Notes Protein: 0.8-1 g/Kg ABW; 58-73 g/day. Fluids: 1 ml/Kcal, or as per MD. Nutrition Intervention Change Diet Order: Continue Regular Diet as tolerated. Follow-Up By: 06/04/22 Additional Comments Continue monitoring food tolerance, %PO intake of meals , and BM.
[2022-05-29] MEDS: DIVALPROEX DR 250 MG TAB PO SCH (09:29)
[2022-05-29] MEDS: cephALEXin 500 MG CAP PO SCH ×2 (09:29→21:06)
[2022-05-29] MEDS: SERTRALINE 50 MG TAB PO SCH (09:29)
--- NOTE | 2022-05-29 11:06 | Progress Note ---
Subjective - Reason for Consult Consult date: 05/29/22 Reason for consult: suicidal attempt - Chief Complaint Chief complaint: The patient was seen today. He states he's doing okay. He is guarded. He makes fair eye contact. He says he plans to move to [place] with his sister where he has jobs lined up. The patient denies SI/HI or hallucinations. He gave me permission to speak with his or his sister. I called the spouse, who is adamant about the patient not being in his right mind and being a threat to himself. She says the patient is being manipulative and knows what to say to get discharged. The spouse says the patient is salmon a lot and agitated. The patient and his spouse seem to be in denial about any illicit drug use. She is asking if medications can cause the patient to be mood and agitated. She asks if he could be bipolar. I advise her that the patient could be bipolar, and also illicit substance use can cause these symptoms as well. She replies "and it's not the medication. How is that?" The patient's spouse also says abilify works better for the patient and states the depakote is not a good fit for him. REVIEW OF SYSTEMS Constitutional: Negative for weight loss ENT: Negative for stridor Respiratory: Negative for cough or hemoptysis All other systems reviewed and are negative MENTAL STATUS EXAMINATION General Appearance and Behavior: Age appropriate, good hygiene, wearing appropriate clothes. calm, cooperative Cooperation: Cooperative Psychomotor Behavior: Psychomotor normal Mood: depressed Affect and affective range: congruent with stated mood Thought Process: goal directed Thought Content: SI Speech: Normal tone and pace Suicidal Ideation: Denies Homicidal Ideation: Denies Hallucinations: Denies Delusions: none elicited Impulse Control: Poor Insight and Judgment: limited insight and poor judgment Memory: Limited Attention: attentive Orientation: a/o Assessment (1) Major Depressive Disorder (2) Intentional Overdose of Acetaminophen (3) Amphetamine Use Disorder Treatment Plan 1013 Zoloft 50mg po daily d/c Depakote DR 250mg po BID Start Abilify 10mg po daily Trazodone 50m po qhs Medical: per primary Sitter: defer to primary Disposition: Recommend acute psychiatric inpatient treatment Will sign off. Thanks Case staffed with Dr. Loza Mental Status Exam - Vital signs Last Vital Signs Temp 98.1 F 05/29/22 09:02 Pulse 51 L 05/29/22 10:00 Resp 16 05/29/22 05:49 BP 103/62 05/29/22 09:02 Pulse Ox 97 05/29/22 10:00
[2022-05-29] MEDS: ARIPiprazole 10 MG TAB PO SCH (13:51)
[2022-05-29] MEDS: traZODone 50 MG TAB PO SCH (21:06)
[2022-05-30] MEDS: ARIPiprazole 10 MG TAB PO SCH (09:22)
[2022-05-30] MEDS: SERTRALINE 50 MG TAB PO SCH (09:23)
[2022-05-30] MEDS: cephALEXin 500 MG CAP PO SCH ×2 (09:24→21:09)
--- NOTE | 2022-05-30 11:47 | Progress Note ---
Subjective - Reason for Consult Consult date: 05/30/22 Reason for consult: OD - Chief Complaint Chief complaint: The patient was seen today. He is calm, cooperative and withdrawn with depressive affect. The patient is focused on discharge; he lacks insight and minimizes the reason for this admission. He states he is doing " pretty good." Will continue to recommend inpatient psychiatry due to the recent suicidal attempt. REVIEW OF SYSTEMS Constitutional: Negative for weight loss ENT: Negative for stridor Respiratory: Negative for cough or hemoptysis All other systems reviewed and are negative MENTAL STATUS EXAMINATION General Appearance and Behavior: Age appropriate, good hygiene, wearing appropriate clothes. calm, cooperative Cooperation: Cooperative Psychomotor Behavior: Psychomotor normal Mood: depressed Affect and affective range: congruent with stated mood Thought Process: goal directed Thought Content: reality oriented Speech: Normal tone and pace Suicidal Ideation: Denies Homicidal Ideation: Denies Hallucinations: Denies Delusions: none elicited Impulse Control: Poor Insight and Judgment: limited insight and poor judgment Memory: Limited Attention: attentive Orientation: a/o Assessment (1) Major Depressive Disorder (2) Intentional Overdose of Acetaminophen (3) Amphetamine Use Disorder Treatment Plan 1013 Zoloft 50mg po daily Start Abilify 10mg po daily Trazodone 50mg po qhs Medical: per primary Sitter: defer to primary Disposition: Recommend acute psychiatric inpatient treatment Will sign off. Thanks Case staffed with Dr. Loza Mental Status Exam - Vital signs Last Vital Signs Temp 97.7 F 05/30/22 08:40 Pulse 57 L 05/30/22 08:40 Resp 16 05/30/22 04:52 BP 95/54 05/30/22 08:40 Pulse Ox 97 05/30/22 08:40
--- NOTE | 2022-05-30 12:13 | Progress Note ---
Assessment and Plan Assessment and plan: 31 YO Male with MDD with prior Suicide Attempt presents to ED for evaluation. Patient reports "I took a bunch of pills". Patient states that he ingested approximately 20 Tylenol 500 mg tablets within the past 1 hour in an attempt to take his own life. Patient knowledges feeling depressed, hopeless, and does not have the will to live. EMS was notified and upon arrival the patient was found to be in distress and subsequently transported to [facility] for further care and evaluation of the aforementioned symptoms. The patient was seen and evaluated in the emergency department. All lab and imaging studies reviewed. Patient found to have elevated acetaminophen levels after 1 hour. Patient found to have Tylenol toxicity secondary to Tylenol overdose in a suicide attempt. A 1013 was placed. The patient was admitted to [facility] due to increased risk of worsening symptoms after medical stabilization. Poison control notified. No reports of fever, chills, chest pain, palpitation, productive cough, skin rash, recent contact, known exposure to COVID-19. No prior admission for review. No medication listed at time of admission for reconciliation. Advanced care planning conducted in ED. 05/27: Patient seen and examined discussed extensively still feels suicidal. Of gone ahead to consult psych team for further management. Continue 1013 at this time until evaluated by psych team. Also discussed her CODE STATUS with the patient for 35 minutes discussing the impact of his clinical condition and also the decision he made he verbalized understanding wants to be full code. Preventive care discussion had with the patient on liver management major depression social support services that is available patient verbalized understanding. He says he has a supportive family 05/28: Repeat Tylenol level is normalized. Patient was seen by psych recommended inpatient psych placement. I understand from the nurse that the has some concerns about starting medication we will discuss with the spouse and also with the psych team. Awaiting placement or revocation by psych team. Was noted today to have pyuria although no symptoms although sometimes complains of pain with urination. We will treat empirically with Keflex for 3 days. For now continue 1013 Discussed with the , she is concerned about the patient coming home and does not feel the patient is in the right frame of mind. She also wanted to know if the Depakote can be changed to Abilify 05/29: Patient clinically stable for discharge. Awaiting placement at this time continue current management 05/30: Patient medically stable for discharge awaiting psych placement at this time. Continue supportive care. Again explained to the patient his current medical management. He verbalized understanding. (1) Tylenol toxicityintentional overdose of acetaminophen Current Visit: Yes Status: Acute Qualifiers: Encounter type: initial encounter Injury intent: intentional self-harm Qualified Code(s): T39.1X2A - Poisoning by 4-Aminophenol derivatives, intentional self-harm, initial encounter Plan to address problem: Post control notified, initiate therapy with Mucomyst, serial acetaminophen levels, IV fluid resuscitation therapy as clinical indicated, supportive care. Psych consult (2) Suicide attempt Current Visit: Yes Status: Acute Plan to address problem: [address]3 in place, mental health team consulted. (3) Major depression Current Visit: Yes Status: Acute Qualifiers: Major depression episode severity: severe Plan to address problem: Mental health team consulted, supportive care, one-to-one sitter. (4) amphetamine abuse (5) acute cystitis (6) DVT prophylaxis Current Visit: Yes Status: Acute Plan to address problem: SCDs bilateral lower extremities while in bed (7) Advance care planning Current Visit: Yes Status: Acute Plan to address problem: Disease education conducted, care plan discussed, diagnoses discussed, prognosis discussed, patient is full code, +30 minutes. (8) Preventative health care Current Visit: Yes Status: Acute Plan to address problem: Patient counseled regarding risk factor reduction, safe driving, outpatient mental health follow-up, outpatient follow-up with primary care physician for all age and risk factor appropriate screening test. +30 minutes. History Interval history: Patient seen and examined this morning denies any chest pain nausea vomiting. States that he is feeling somewhat better Hospitalist Physical - Physical exam Narrative exam: VITAL SIGNS: Reviewed. GENERAL: The patient appears normally developed, Vital signs as documented. HEAD: No signs of head trauma. EYES: Pupils are equal. Extraocular motions intact. EARS: Hearing grossly intact. MOUTH: Oropharynx is normal. NECK: No adenopathy, no JVD. CHEST: Chest with clear breath sounds bilaterally. No wheezes, rales, or rhonchi. CARDIAC: Regular rate and rhythm. S1 and S2, without murmurs, gallops, or rubs. VASCULAR: No Edema. Peripheral pulses normal and equal in all extremities. ABDOMEN: Soft, non tender and non distended. No rebound or guarding, and no masses palpated. Bowel Sounds normal. MUSCULOSKELETAL: Good range of motion of all major joints. Extremities without clubbing, cyanosis or edema. NEUROLOGIC EXAM: Alert and oriented x 3 No focal sensory or strength deficits. Speech normal. Follows commands. PSYCHIATRIC: Mood normal. SKIN: detail exam as documented in skin assessment - Constitutional Vitals: Temp Pulse Resp BP Pulse Ox 97.7 F 57 L 16 95/54 97 05/30/22 08:40 05/30/22 08:40 05/30/22 04:52 05/30/22 08:40 05/30/22 08:40 General appearance: Present: mild distress HEART Score - HEART Score Troponin: Troponin T < 0.010 ng/mL (0.00-0.029) 05/26/22 12:03 Results - Labs CBC & Chem 7: 05/27/22 04:13 05/27/22 04:13 Labs: Laboratory Last Values WBC 9.0 K/mm3 (4.5-11.0) 05/27/22 04:13 RBC 4.25 M/mm3 (3.65-5.03) 05/27/22 04:13 Hgb 12.9 gm/dl (11.8-15.2) 05/27/22 04:13 Hct 40.2 % (35.5-45.6) 05/27/22 04:13 MCV 95 fl (84-94) H 05/27/22 04:13 MCH 30 pg (28-32) 05/27/22 04:13 MCHC 32 % (32-34) 05/27/22 04:13 RDW 14.6 % (13.2-15.2) 05/27/22 04:13 Plt Count 206 K/mm3 (140-440) 05/27/22 04:13 Lymph % (Auto) 29.4 % (13.4-35.0) 05/27/22 04:13 Howell % (Auto) 7.8 % (0.0-7.3) H 05/27/22 04:13 Eos % (Auto) 1.3 % (0.0-4.3) 05/27/22 04:13 Baso % (Auto) 0.6 % (0.0-1.8) 05/27/22 04:13 Lymph # (Auto) 2.7 K/mm3 (1.2-5.4) 05/27/22 04:13 Howell # (Auto) 0.7 K/mm3 (0.0-0.8) 05/27/22 04:13 Eos # (Auto) 0.1 K/mm3 (0.0-0.4) 05/27/22 04:13 Baso # (Auto) 0.1 K/mm3 (0.0-0.1) 05/27/22 04:13 Seg Neutrophils % 60.9 % (40.0-70.0) 05/27/22 04:13 Seg Neutrophils # 5.5 K/mm3 (1.8-7.7) 05/27/22 04:13 PT 15.6 Sec. (12.2-14.9) H 05/27/22 09:30 INR 1.11 (0.87-1.13) 05/27/22 09:30 Sodium 139 mmol/L (137-145) 05/27/22 04:13 Potassium 3.7 mmol/L (3.6-5.0) 05/27/22 04:13 Chloride 110.2 mmol/L (98-107) H 05/27/22 04:13 Carbon Dioxide 21 mmol/L (22-30) L 05/27/22 04:13 Anion Gap 12 mmol/L 05/27/22 04:13 BUN 6 mg/dL (9-20) L 05/27/22 04:13 Creatinine 0.6 mg/dL (0.8-1.3) L 05/27/22 04:13 Estimated GFR > 60 ml/min 05/27/22 04:13 BUN/Creatinine Ratio 10 % 05/27/22 04:13 Glucose 88 mg/dL (75-100) 05/27/22 04:13 Calcium 8.2 mg/dL (8.4-10.2) L 05/27/22 04:13 Total Bilirubin 0.30 mg/dL (0.1-1.2) 05/27/22 09:30 Direct Bilirubin < 0.2 mg/dL (0-0.2) 05/27/22 09:30 Indirect Bilirubin 0.1 mg/dL 05/27/22 09:30 AST 21 units/L (5-40) 05/27/22 09:30 ALT 19 units/L (7-56) 05/27/22 09:30 Alkaline Phosphatase 55 units/L (35-129) 05/27/22 09:30 Total Creatine Kinase 181 units/L (55-170) H 05/26/22 12:03 Troponin T < 0.010 ng/mL (0.00-0.029) 05/26/22 12:03 Total Protein 5.4 g/dL (6.3-8.2) L 05/27/22 09:30 Albumin 3.5 g/dL (3.9-5) L 05/27/22 09:30 Albumin/Globulin Ratio 1.8 % 05/27/22 09:30 Urine Color Yellow (Yellow) 05/26/22 16:42 Urine Turbidity Hazy (Clear) 05/26/22 16:42 Urine pH 6.0 (5.0-7.0) 05/26/22 16:42 Ur Specific [place] 1.020 (1.003-1.030) 05/26/22 16:42 Urine Protein 30 mg/dl mg/dL (Negative) 05/26/22 16:42 Urine Glucose (UA) Negative mg/dL (Negative) 05/26/22 16:42 Urine Ketones Negative mg/dL (Negative) 05/26/22 16:42 Urine Blood Negative (Negative) 05/26/22 16:42 Urine Nitrite Negative (Negative) 05/26/22 16:42 Ur Reducing Substances Not Reportable 05/26/22 16:42 Urine Bilirubin Negative (Negative) 05/26/22 16:42 Urine Ictotest Not Reportable 05/26/22 16:42 Urine Urobilinogen < 2.0 mg/dL (<2.0) 05/26/22 16:42 Ur Leukocyte Esterase Negative (Negative) 05/26/22 16:42 Urine WBC (Auto) 156.0 /HPF (0.0-6.0) H 05/26/22 16:42 Urine RBC (Auto) 13.0 /HPF (0.0-6.0) 05/26/22 16:42 U Epithel Cells (Auto) 7.0 /HPF (0-13.0) 05/26/22 16:42 Urine Bacteria (Auto) 1+ /HPF (Negative) 05/26/22 16:42 Urine WBC Clumps 2+ /HPF 05/26/22 16:42 Urine Mucus 3+ /HPF 05/26/22 16:42 Urine Yeast (Budding) 1+ /HPF 05/26/22 16:42 Salicylates < 0.3 mg/dL (2.8-20.0) L 05/26/22 12:15 Urine Opiates Screen Negative 05/26/22 16:42 Urine Methadone Screen Negative 05/26/22 16:42 Acetaminophen 5.0 ug/mL (10.0-30.0) L 05/27/22 06:12 Ur Barbiturates Screen Negative 05/26/22 16:42 Ur Phencyclidine Scrn Negative 05/26/22 16:42 Ur Amphetamines Screen Positive 05/26/22 16:42 U Benzodiazepines Scrn Negative 05/26/22 16:42 Urine Cocaine Screen Negative 05/26/22 16:42 U Marijuana (THC) Screen Negative 05/26/22 16:42 Drugs of Abuse Note Disclamer 05/26/22 16:42 Plasma/Serum Alcohol < 0.01 % (0-0.07) 05/26/22 12:15 Vidal/IV: Voiding Method Toilet Active Medications - Current Medications Current Medications: Generic Name Dose Route Start Last Admin Trade Name Freq PRN Reason Stop Dose Admin Albuterol 2.5 mg 05/26/22 14:00 Albuterol 2.5 Mg/3 Ml Nebu IH Q3HRT PRN Shortness Of Breath Aripiprazole 10 mg 05/29/22 11:00 05/30/22 09:22 Aripiprazole 10 Mg Tab PO 10 mg QDAY VANESSA Administration Cephalexin 500 mg 05/28/22 14:00 05/30/22 09:24 Cephalexin 500 Mg Cap PO 05/30/22 22:01 500 mg Q12HR VANESSA Administration Protocol Hydromorphone HCl 0.5 mg 05/26/22 14:00 Hydromorphone 0.5 Mg/0.5 Ml Inj IV Q23H PRN Pain , Severe (7-10) Ibuprofen 600 mg 05/26/22 14:00 Ibuprofen 600 Mg Tab PO Q6H PRN Pain, Mild (1-3) Morphine Sulfate 2 mg 05/26/22 14:00 Morphine 2 Mg/1 Ml Inj IV Q8H PRN Pain, Moderate (4-6) Ondansetron HCl 4 mg 05/26/22 16:19 Ondansetron 4 Mg/2 Ml Inj IV Q8H PRN Nausea And Vomiting Oxycodone/Acetaminophen 1 tab 05/26/22 14:00 Oxycodone /Acetaminophen 5-325mg Tab PO Q16H PRN Pain, Moderate (4-6) Sertraline HCl 50 mg 05/29/22 10:00 05/30/22 09:23 Sertraline 50 Mg Tab PO 50 mg QDAY VANESSA Administration Sodium Chloride 10 ml 05/26/22 22:00 05/29/22 21:07 Sodium Chloride 0.9% 10 Ml Flush Syringe IV 05/31/22 21:59 10 ml BID VANESSA Administration Sodium Chloride 10 ml 05/26/22 13:31 Sodium Chloride 0.9% 10 Ml Flush Syringe IV 05/31/22 13:30 PRN PRN LINE FLUSH Trazodone HCl 50 mg 05/27/22 22:00 05/29/22 21:06 Trazodone 50 Mg Tab PO 50 mg QHS VANESSA Administration Nutrition/Malnutrition Assess - Dietary Evaluation Nutrition/Malnutrition Findings: Nutrition Notes Start: 05/28/22 16:57 Freq: Status: Active Protocol: Document 05/28/22 16:57 ISAI (Rec: 05/28/22 17:13 ISAI [id number]) Nutrition Notes 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 Current Diet Regular Diet (since D 05/26). Labs/Tests 05/28: Cl 110.2, CO2 21, BUN 6 , Crea 0.6, Ca 8.2. Pertinent Medications 05/28: Nutritionally unremarkable. Height 5 ft 8 in Weight 72.57 kg [place] Body Weight (kg) 70.00 BMI 24.3 Intake Prior to Admission Good Weight change and time frame Pt denies having loss body weight [employer]. Weight Status Appropriate Subjective/Other Information RD consult for skin risk assessment. Pt's PO intake of meals has been Good (75-100%) and well tolerated, according to ADL notes. Pt is on Room Air, O2 saturation @ 97%, according to Physical Assessment History notes. Code 1013 placed on 05/26, according to Progress notes. Pt shows no signs of concern for skin risk at the time, according to Physical Assessment History notes. Percent of energy/protein needs met: Prescribed Regular Diet provides for energy/protein needs (2,289 Kcal/89 g) during LOS. Burn Absent Trauma Absent GI Symptoms None Food Allergy No Skin Integrity/Comment Assessment WNL. Current % PO Good (75-100%) Minimum of two criteria No Fluid Accumulation N/A Reduced Primer Boxer Strength N/A (non-severe) Protein-Calorie Malnutrition N\\A #1 Nutrition Diagnosis No nutrition diagnosis at this time Is patient on ventilator? No Is Patient Ambulatory and/or Out of Bed Yes REE-([place]-ambulatory/OOB) [ 2151.760 [id number]] Kcal/Kg value to use for calculation 26 Approximate Energy Requirements Using 1887 kcal/Kg Calculation Used for Recommendations Kcal/kg Additional Notes Protein: 0.8-1 g/Kg ABW; 58-73 g/day. Fluids: 1 ml/Kcal, or as per MD. Nutrition Intervention Change Diet Order: Continue Regular Diet as tolerated. Follow-Up By: 06/04/22 Additional Comments Continue monitoring food tolerance, %PO intake of meals , and BM.
[2022-05-30] MEDS: traZODone 50 MG TAB PO SCH (21:09)
--- NOTE | 2022-05-31 08:12 | Progress Note ---
Assessment and Plan Assessment and plan: 31 YO Male with MDD with prior Suicide Attempt presents to ED for evaluation. Patient reports "I took a bunch of pills". Patient states that he ingested approximately 20 Tylenol 500 mg tablets within the past 1 hour in an attempt to take his own life. Patient knowledges feeling depressed, hopeless, and does not have the will to live. EMS was notified and upon arrival the patient was found to be in distress and subsequently transported to [facility] for further care and evaluation of the aforementioned symptoms. The patient was seen and evaluated in the emergency department. All lab and imaging studies reviewed. Patient found to have elevated acetaminophen levels after 1 hour. Patient found to have Tylenol toxicity secondary to Tylenol overdose in a suicide attempt. A 1013 was placed. The patient was admitted to [facility] due to increased risk of worsening symptoms after medical stabilization. Poison control notified. No reports of fever, chills, chest pain, palpitation, productive cough, skin rash, recent contact, known exposure to COVID-19. No prior admission for review. No medication listed at time of admission for reconciliation. Advanced care planning conducted in ED. 05/27: Patient seen and examined discussed extensively still feels suicidal. Of gone ahead to consult psych team for further management. Continue 1013 at this time until evaluated by psych team. Also discussed her CODE STATUS with the patient for 35 minutes discussing the impact of his clinical condition and also the decision he made he verbalized understanding wants to be full code. Preventive care discussion had with the patient on liver management major depression social support services that is available patient verbalized understanding. He says he has a supportive family 05/28: Repeat Tylenol level is normalized. Patient was seen by psych recommended inpatient psych placement. I understand from the nurse that the has some concerns about starting medication we will discuss with the spouse and also with the psych team. Awaiting placement or revocation by psych team. Was noted today to have pyuria although no symptoms although sometimes complains of pain with urination. We will treat empirically with Keflex for 3 days. For now continue 1013 Discussed with the , she is concerned about the patient coming home and does not feel the patient is in the right frame of mind. She also wanted to know if the Depakote can be changed to Abilify 05/29: Patient clinically stable for discharge. Awaiting placement at this time continue current management 05/30: Patient medically stable for discharge awaiting psych placement at this time. Continue supportive care. Again explained to the patient his current medical management. He verbalized understanding. 05/31: Patient seen and examined no acute distress resting comfortably. Clinically stable for discharge awaiting place (1) Tylenol toxicityintentional overdose of acetaminophen Current Visit: Yes Status: Acute Qualifiers: Encounter type: initial encounter Injury intent: intentional self-harm Qualified Code(s): T39.1X2A - Poisoning by 4-Aminophenol derivatives, intentional self-harm, initial encounter Plan to address problem: Post control notified, initiate therapy with Mucomyst, serial acetaminophen levels, IV fluid resuscitation therapy as clinical indicated, supportive care. Psych consult (2) Suicide attempt Current Visit: Yes Status: Acute Plan to address problem: 1013 in place, mental health team consulted. (3) Major depression Current Visit: Yes Status: Acute Qualifiers: Major depression episode severity: severe Plan to address problem: Mental health team consulted, supportive care, one-to-one sitter. (4) amphetamine abuse (5) acute cystitis (6) DVT prophylaxis Current Visit: Yes Status: Acute Plan to address problem: SCDs bilateral lower extremities while in bed (7) Advance care planning Current Visit: Yes Status: Acute Plan to address problem: Disease education conducted, care plan discussed, diagnoses discussed, prognosis discussed, patient is full code, +30 minutes. (8) Preventative health care Current Visit: Yes Status: Acute Plan to address problem: Patient counseled regarding risk factor reduction, safe driving, outpatient mental health follow-up, outpatient follow-up with primary care physician for all age and risk factor appropriate screening test. +30 minutes. History Interval history: Patient seen and examined this morning denies any chest pain nausea vomiting. States that he is feeling somewhat better Hospitalist Physical - Physical exam Narrative exam: VITAL SIGNS: Reviewed. GENERAL: The patient appears normally developed, Vital signs as documented. HEAD: No signs of head trauma. EYES: Pupils are equal. Extraocular motions intact. EARS: Hearing grossly intact. MOUTH: Oropharynx is normal. NECK: No adenopathy, no JVD. CHEST: Chest with clear breath sounds bilaterally. No wheezes, rales, or rhonchi. CARDIAC: Regular rate and rhythm. S1 and S2, without murmurs, gallops, or rubs. VASCULAR: No Edema. Peripheral pulses normal and equal in all extremities. ABDOMEN: Soft, non tender and non distended. No rebound or guarding, and no masses palpated. Bowel Sounds normal. MUSCULOSKELETAL: Good range of motion of all major joints. Extremities without clubbing, cyanosis or edema. NEUROLOGIC EXAM: Alert and oriented x 3 No focal sensory or strength deficits. Speech normal. Follows commands. PSYCHIATRIC: Mood normal. SKIN: detail exam as documented in skin assessment - Constitutional Vitals: Temp Pulse Resp BP Pulse Ox 97.6 F 56 L 18 96/56 99 05/31/22 05:33 05/31/22 05:33 05/31/22 05:33 05/31/22 05:33 05/31/22 05:33 General appearance: Present: mild distress HEART Score - HEART Score Troponin: Troponin T < 0.010 ng/mL (0.00-0.029) 05/26/22 12:03 Results - Labs CBC & Chem 7: 05/27/22 04:13 05/27/22 04:13 Labs: Laboratory Last Values WBC 9.0 K/mm3 (4.5-11.0) 05/27/22 04:13 RBC 4.25 M/mm3 (3.65-5.03) 05/27/22 04:13 Hgb 12.9 gm/dl (11.8-15.2) 05/27/22 04:13 Hct 40.2 % (35.5-45.6) 05/27/22 04:13 MCV 95 fl (84-94) H 05/27/22 04:13 MCH 30 pg (28-32) 05/27/22 04:13 MCHC 32 % (32-34) 05/27/22 04:13 RDW 14.6 % (13.2-15.2) 05/27/22 04:13 Plt Count 206 K/mm3 (140-440) 05/27/22 04:13 Lymph % (Auto) 29.4 % (13.4-35.0) 05/27/22 04:13 [place] % (Auto) 7.8 % (0.0-7.3) H 05/27/22 04:13 Eos % (Auto) 1.3 % (0.0-4.3) 05/27/22 04:13 Baso % (Auto) 0.6 % (0.0-1.8) 05/27/22 04:13 Lymph # (Auto) 2.7 K/mm3 (1.2-5.4) 05/27/22 04:13 [place] # (Auto) 0.7 K/mm3 (0.0-0.8) 05/27/22 04:13 Eos # (Auto) 0.1 K/mm3 (0.0-0.4) 05/27/22 04:13 Baso # (Auto) 0.1 K/mm3 (0.0-0.1) 05/27/22 04:13 Seg Neutrophils % 60.9 % (40.0-70.0) 05/27/22 04:13 Seg Neutrophils # 5.5 K/mm3 (1.8-7.7) 05/27/22 04:13 PT 15.6 Sec. (12.2-14.9) H 05/27/22 09:30 INR 1.11 (0.87-1.13) 05/27/22 09:30 Sodium 139 mmol/L (137-145) 05/27/22 04:13 Potassium 3.7 mmol/L (3.6-5.0) 05/27/22 04:13 Chloride 110.2 mmol/L (98-107) H 05/27/22 04:13 Carbon Dioxide 21 mmol/L (22-30) L 05/27/22 04:13 Anion Gap 12 mmol/L 05/27/22 04:13 BUN 6 mg/dL (9-20) L 05/27/22 04:13 Creatinine 0.6 mg/dL (0.8-1.3) L 05/27/22 04:13 Estimated GFR > 60 ml/min 05/27/22 04:13 BUN/Creatinine Ratio 10 % 05/27/22 04:13 Glucose 88 mg/dL (75-100) 05/27/22 04:13 Calcium 8.2 mg/dL (8.4-10.2) L 05/27/22 04:13 Total Bilirubin 0.30 mg/dL (0.1-1.2) 05/27/22 09:30 Direct Bilirubin < 0.2 mg/dL (0-0.2) 05/27/22 09:30 Indirect Bilirubin 0.1 mg/dL 05/27/22 09:30 AST 21 units/L (5-40) 05/27/22 09:30 ALT 19 units/L (7-56) 05/27/22 09:30 Alkaline Phosphatase 55 units/L (35-129) 05/27/22 09:30 Total Creatine Kinase 181 units/L (55-170) H 05/26/22 12:03 Troponin T < 0.010 ng/mL (0.00-0.029) 05/26/22 12:03 Total Protein 5.4 g/dL (6.3-8.2) L 05/27/22 09:30 Albumin 3.5 g/dL (3.9-5) L 05/27/22 09:30 Albumin/Globulin Ratio 1.8 % 05/27/22 09:30 Urine Color Yellow (Yellow) 05/26/22 16:42 Urine Turbidity Hazy (Clear) 05/26/22 16:42 Urine pH 6.0 (5.0-7.0) 05/26/22 16:42 Ur Specific [place] 1.020 (1.003-1.030) 05/26/22 16:42 Urine Protein 30 mg/dl mg/dL (Negative) 05/26/22 16:42 Urine Glucose (UA) Negative mg/dL (Negative) 05/26/22 16:42 Urine Ketones Negative mg/dL (Negative) 05/26/22 16:42 Urine Blood Negative (Negative) 05/26/22 16:42 Urine Nitrite Negative (Negative) 05/26/22 16:42 Ur Reducing Substances Not Reportable 05/26/22 16:42 Urine Bilirubin Negative (Negative) 05/26/22 16:42 Urine Ictotest Not Reportable 05/26/22 16:42 Urine Urobilinogen < 2.0 mg/dL (<2.0) 05/26/22 16:42 Ur Leukocyte Esterase Negative (Negative) 05/26/22 16:42 Urine WBC (Auto) 156.0 /HPF (0.0-6.0) H 05/26/22 16:42 Urine RBC (Auto) 13.0 /HPF (0.0-6.0) 05/26/22 16:42 U Epithel Cells (Auto) 7.0 /HPF (0-13.0) 05/26/22 16:42 Urine Bacteria (Auto) 1+ /HPF (Negative) 05/26/22 16:42 Urine WBC Clumps 2+ /HPF 05/26/22 16:42 Urine Mucus 3+ /HPF 05/26/22 16:42 Urine Yeast (Budding) 1+ /HPF 05/26/22 16:42 Salicylates < 0.3 mg/dL (2.8-20.0) L 05/26/22 12:15 Urine Opiates Screen Negative 05/26/22 16:42 Urine Methadone Screen Negative 05/26/22 16:42 Acetaminophen 5.0 ug/mL (10.0-30.0) L 05/27/22 06:12 Ur Barbiturates Screen Negative 05/26/22 16:42 Ur Phencyclidine Scrn Negative 05/26/22 16:42 Ur Amphetamines Screen Positive 05/26/22 16:42 U Benzodiazepines Scrn Negative 05/26/22 16:42 Urine Cocaine Screen Negative 05/26/22 16:42 U Marijuana (THC) Screen Negative 05/26/22 16:42 Drugs of Abuse Note Disclamer 05/26/22 16:42 Plasma/Serum Alcohol < 0.01 % (0-0.07) 05/26/22 12:15 Vidal/IV: Voiding Method Toilet Active Medications - Current Medications Current Medications: Generic Name Dose Route Start Last Admin Trade Name Freq PRN Reason Stop Dose Admin Albuterol 2.5 mg 05/26/22 14:00 Albuterol 2.5 Mg/3 Ml Nebu IH Q3HRT PRN Shortness Of Breath Aripiprazole 10 mg 05/29/22 11:00 05/30/22 09:22 Aripiprazole 10 Mg Tab PO 10 mg QDAY VANESSA Administration Hydromorphone HCl 0.5 mg 05/26/22 14:00 Hydromorphone 0.5 Mg/0.5 Ml Inj IV Q23H PRN Pain , Severe (7-10) Ibuprofen 600 mg 05/26/22 14:00 Ibuprofen 600 Mg Tab PO Q6H PRN Pain, Mild (1-3) Morphine Sulfate 2 mg 05/26/22 14:00 Morphine 2 Mg/1 Ml Inj IV Q8H PRN Pain, Moderate (4-6) Ondansetron HCl 4 mg 05/26/22 16:19 Ondansetron 4 Mg/2 Ml Inj IV Q8H PRN Nausea And Vomiting Oxycodone/Acetaminophen 1 tab 05/26/22 14:00 Oxycodone /Acetaminophen 5-325mg Tab PO Q16H PRN Pain, Moderate (4-6) Sertraline HCl 50 mg 05/29/22 10:00 05/30/22 09:23 Sertraline 50 Mg Tab PO 50 mg QDAY VANESSA Administration Sodium Chloride 10 ml 05/26/22 22:00 05/30/22 21:09 Sodium Chloride 0.9% 10 Ml Flush Syringe IV 05/31/22 21:59 10 ml BID VANESSA Administration Sodium Chloride 10 ml 05/26/22 13:31 Sodium Chloride 0.9% 10 Ml Flush Syringe IV 05/31/22 13:30 PRN PRN LINE FLUSH Trazodone HCl 50 mg 05/27/22 22:00 05/30/22 21:09 Trazodone 50 Mg Tab PO 50 mg QHS VANESSA Administration Nutrition/Malnutrition Assess - Dietary Evaluation Nutrition/Malnutrition Findings: Nutrition Notes Start: 05/28/22 16:57 Freq: Status: Active Protocol: Document 05/28/22 16:57 ISAI (Rec: 05/28/22 17:13 ISAI [id number]) Nutrition Notes 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 Current Diet Regular Diet (since D 05/26). Labs/Tests 05/28: Cl 110.2, CO2 21, BUN 6 , Crea 0.6, Ca 8.2. Pertinent Medications 05/28: Nutritionally unremarkable. 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 Weight Status Appropriate Subjective/Other Information RD consult for skin risk assessment. Pt's PO intake of meals has been Good (75-100%) and well tolerated, according to ADL notes. Pt is on Room Air, O2 saturation @ 97%, according to Physical Assessment History notes. Code 1013 placed on 05/26, according to Progress notes. Pt shows no signs of concern for skin risk at the time, according to Physical Assessment History notes. Percent of energy/protein needs met: Prescribed Regular Diet provides for energy/protein needs (2,289 Kcal/89 g) during LOS. Burn Absent Trauma Absent GI Symptoms None Food Allergy No Skin Integrity/Comment Assessment WNL. 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 No Is Patient Ambulatory and/or Out of Bed Yes REE-([facility]-ambulatory/OOB) [ 2151.760 [id number]] Kcal/Kg value to use for calculation 26 Approximate Energy Requirements Using 1887 kcal/Kg Calculation Used for Recommendations Kcal/kg Additional Notes Protein: 0.8-1 g/Kg ABW; 58-73 g/day. Fluids: 1 ml/Kcal, or as per MD. Nutrition Intervention Change Diet Order: Continue Regular Diet as tolerated. Follow-Up By: 06/04/22 Additional Comments Continue monitoring food tolerance, %PO intake of meals , and BM.
[2022-05-31] MEDS: SERTRALINE 50 MG TAB PO SCH (09:40)
[2022-05-31] MEDS: ARIPiprazole 10 MG TAB PO SCH (09:40)
--- NOTE | 2022-05-31 12:35 | Progress Note ---
Subjective - Reason for Consult Consult date: 05/31/22 Reason for consult: OD - Chief Complaint Chief complaint: The patient was seen today. He is calm, cooperative. He states he is doing well. He states trigger such as family issues and work. He continues to present with depressive affect. He denies any current suicidal/homicidal ideation and denies hallucinations. REVIEW OF SYSTEMS Constitutional: Negative for weight loss ENT: Negative for stridor Respiratory: Negative for cough or hemoptysis All other systems reviewed and are negative MENTAL STATUS EXAMINATION General Appearance and Behavior: Age appropriate, good hygiene, wearing appropriate clothes. calm, cooperative Cooperation: Cooperative Psychomotor Behavior: Psychomotor normal Mood: depressed Affect and affective range: congruent with stated mood Thought Process: goal directed Thought Content: reality oriented Speech: Normal tone and pace Suicidal Ideation: Denies Homicidal Ideation: Denies Hallucinations: Denies Delusions: none elicited Impulse Control: Poor Insight and Judgment: limited insight and poor judgment Memory: Limited Attention: attentive Orientation: a/o Assessment (1) Major Depressive Disorder (2) Intentional Overdose of Acetaminophen (3) Amphetamine Use Disorder Treatment Plan 1013 Zoloft 50mg po daily Abilify 10mg po daily Trazodone 50mg po qhs Medical: per primary Sitter: defer to primary Disposition: Recommend acute psychiatric inpatient treatment Will sign off. Thanks Case staffed with Dr. Loza Mental Status Exam - Vital signs Last Vital Signs Temp 97.6 F 05/31/22 05:33 Pulse 56 L 05/31/22 05:33 Resp 18 05/31/22 05:33 BP 96/56 05/31/22 05:33 Pulse Ox 97 05/31/22 10:00
[2022-05-31] MEDS: traZODone 50 MG TAB PO SCH (22:35)
--- NOTE | 2022-06-01 10:24 | Progress Note ---
Assessment and Plan Assessment and plan: 31 YO Male with MDD with prior Suicide Attempt presents to ED for evaluation. Patient reports "I took a bunch of pills". Patient states that he ingested approximately 20 Tylenol 500 mg tablets within the past 1 hour in an attempt to take his own life. Patient knowledges feeling depressed, hopeless, and does not have the will to live. EMS was notified and upon arrival the patient was found to be in distress and subsequently transported to [facility] for further care and evaluation of the aforementioned symptoms. The patient was seen and evaluated in the emergency department. All lab and imaging studies reviewed. Patient found to have elevated acetaminophen levels after 1 hour. Patient found to have Tylenol toxicity secondary to Tylenol overdose in a suicide attempt. A 1013 was placed. The patient was admitted to [facility] due to increased risk of worsening symptoms after medical stabilization. Poison control notified. No reports of fever, chills, chest pain, palpitation, productive cough, skin rash, recent contact, known exposure to COVID-19. No prior admission for review. No medication listed at time of admission for reconciliation. Advanced care planning conducted in ED. 05/27: Patient seen and examined discussed extensively still feels suicidal. Of gone ahead to consult psych team for further management. Continue 1013 at this time until evaluated by psych team. Also discussed her CODE STATUS with the patient for 35 minutes discussing the impact of his clinical condition and also the decision he made he verbalized understanding wants to be full code. Preventive care discussion had with the patient on liver management major depression social support services that is available patient verbalized understanding. He says he has a supportive family 05/28: Repeat Tylenol level is normalized. Patient was seen by psych recommended inpatient psych placement. I understand from the nurse that the has some concerns about starting medication we will discuss with the spouse and also with the psych team. Awaiting placement or revocation by psych team. Was noted today to have pyuria although no symptoms although sometimes complains of pain with urination. We will treat empirically with Keflex for 3 days. For now continue 1013 Discussed with the , she is concerned about the patient coming home and does not feel the patient is in the right frame of mind. She also wanted to know if the Depakote can be changed to Abilify 05/29: Patient clinically stable for discharge. Awaiting placement at this time continue current management 05/30: Patient medically stable for discharge awaiting psych placement at this time. Continue supportive care. Again explained to the patient his current medical management. He verbalized understanding. 05/31: Patient seen and examined no acute distress resting comfortably. Clinically stable for discharge awaiting place 06/01: Remains under 1013 watch. Clinically stable for discharge. (1) Tylenol toxicityintentional overdose of acetaminophen Current Visit: Yes Status: Acute Qualifiers: Encounter type: initial encounter Injury intent: intentional self-harm Qualified Code(s): T39.1X2A - Poisoning by 4-Aminophenol derivatives, intentional self-harm, initial encounter Plan to address problem: Post control notified, initiate therapy with Mucomyst, serial acetaminophen levels, IV fluid resuscitation therapy as clinical indicated, supportive care. Psych consult (2) Suicide attempt Current Visit: Yes Status: Acute Plan to address problem: 1013 in place, mental health team consulted. (3) Major depression Current Visit: Yes Status: Acute Qualifiers: Major depression episode severity: severe Plan to address problem: Mental health team consulted, supportive care, one-to-one sitter. (4) amphetamine abuse (5) acute cystitis (6) DVT prophylaxis Current Visit: Yes Status: Acute Plan to address problem: SCDs bilateral lower extremities while in bed (7) Advance care planning Current Visit: Yes Status: Acute Plan to address problem: Disease education conducted, care plan discussed, diagnoses discussed, prognosis discussed, patient is full code, +30 minutes. (8) Preventative health care Current Visit: Yes Status: Acute Plan to address problem: Patient counseled regarding risk factor reduction, safe driving, outpatient mental health follow-up, outpatient follow-up with primary care physician for all age and risk factor appropriate screening test. +30 minutes. History Interval history: Patient seen and examined this morning denies any chest pain nausea vomiting. Wants to know when he will be discharged Hospitalist Physical - Physical exam Narrative exam: VITAL SIGNS: Reviewed. GENERAL: The patient appears normally developed, Vital signs as documented. HEAD: No signs of head trauma. EYES: Pupils are equal. Extraocular motions intact. EARS: Hearing grossly intact. MOUTH: Oropharynx is normal. NECK: No adenopathy, no JVD. CHEST: Chest with clear breath sounds bilaterally. No wheezes, rales, or rhonchi. CARDIAC: Regular rate and rhythm. S1 and S2, without murmurs, gallops, or rubs. VASCULAR: No Edema. Peripheral pulses normal and equal in all extremities. ABDOMEN: Soft, non tender and non distended. No rebound or guarding, and no masses palpated. Bowel Sounds normal. MUSCULOSKELETAL: Good range of motion of all major joints. Extremities without clubbing, cyanosis or edema. NEUROLOGIC EXAM: Alert and oriented x 3 No focal sensory or strength deficits. Speech normal. Follows commands. PSYCHIATRIC: Mood normal. SKIN: detail exam as documented in skin assessment - Constitutional Vitals: Temp Pulse Resp BP Pulse Ox 98.4 F 57 L 16 101/60 97 06/01/22 08:30 06/01/22 08:30 06/01/22 08:30 06/01/22 08:30 06/01/22 08:30 General appearance: Present: mild distress HEART Score - HEART Score Troponin: Troponin T < 0.010 ng/mL (0.00-0.029) 05/26/22 12:03 Results - Labs CBC & Chem 7: 05/27/22 04:13 05/27/22 04:13 Labs: Laboratory Last Values WBC 9.0 K/mm3 (4.5-11.0) 05/27/22 04:13 RBC 4.25 M/mm3 (3.65-5.03) 05/27/22 04:13 Hgb 12.9 gm/dl (11.8-15.2) 05/27/22 04:13 Hct 40.2 % (35.5-45.6) 05/27/22 04:13 MCV 95 fl (84-94) H 05/27/22 04:13 MCH 30 pg (28-32) 05/27/22 04:13 MCHC 32 % (32-34) 05/27/22 04:13 RDW 14.6 % (13.2-15.2) 05/27/22 04:13 Plt Count 206 K/mm3 (140-440) 05/27/22 04:13 Lymph % (Auto) 29.4 % (13.4-35.0) 05/27/22 04:13 [place] % (Auto) 7.8 % (0.0-7.3) H 05/27/22 04:13 Eos % (Auto) 1.3 % (0.0-4.3) 05/27/22 04:13 Baso % (Auto) 0.6 % (0.0-1.8) 05/27/22 04:13 Lymph # (Auto) 2.7 K/mm3 (1.2-5.4) 05/27/22 04:13 [place] # (Auto) 0.7 K/mm3 (0.0-0.8) 05/27/22 04:13 Eos # (Auto) 0.1 K/mm3 (0.0-0.4) 05/27/22 04:13 Baso # (Auto) 0.1 K/mm3 (0.0-0.1) 05/27/22 04:13 Seg Neutrophils % 60.9 % (40.0-70.0) 05/27/22 04:13 Seg Neutrophils # 5.5 K/mm3 (1.8-7.7) 05/27/22 04:13 PT 15.6 Sec. (12.2-14.9) H 05/27/22 09:30 INR 1.11 (0.87-1.13) 05/27/22 09:30 Sodium 139 mmol/L (137-145) 05/27/22 04:13 Potassium 3.7 mmol/L (3.6-5.0) 05/27/22 04:13 Chloride 110.2 mmol/L (98-107) H 05/27/22 04:13 Carbon Dioxide 21 mmol/L (22-30) L 05/27/22 04:13 Anion Gap 12 mmol/L 05/27/22 04:13 BUN 6 mg/dL (9-20) L 05/27/22 04:13 Creatinine 0.6 mg/dL (0.8-1.3) L 05/27/22 04:13 Estimated GFR > 60 ml/min 05/27/22 04:13 BUN/Creatinine Ratio 10 % 05/27/22 04:13 Glucose 88 mg/dL (75-100) 05/27/22 04:13 Calcium 8.2 mg/dL (8.4-10.2) L 05/27/22 04:13 Total Bilirubin 0.30 mg/dL (0.1-1.2) 05/27/22 09:30 Direct Bilirubin < 0.2 mg/dL (0-0.2) 05/27/22 09:30 Indirect Bilirubin 0.1 mg/dL 05/27/22 09:30 AST 21 units/L (5-40) 05/27/22 09:30 ALT 19 units/L (7-56) 05/27/22 09:30 Alkaline Phosphatase 55 units/L (35-129) 05/27/22 09:30 Total Creatine Kinase 181 units/L (55-170) H 05/26/22 12:03 Troponin T < 0.010 ng/mL (0.00-0.029) 05/26/22 12:03 Total Protein 5.4 g/dL (6.3-8.2) L 05/27/22 09:30 Albumin 3.5 g/dL (3.9-5) L 05/27/22 09:30 Albumin/Globulin Ratio 1.8 % 05/27/22 09:30 Urine Color Yellow (Yellow) 05/26/22 16:42 Urine Turbidity Hazy (Clear) 05/26/22 16:42 Urine pH 6.0 (5.0-7.0) 05/26/22 16:42 Ur Specific [place] 1.020 (1.003-1.030) 05/26/22 16:42 Urine Protein 30 mg/dl mg/dL (Negative) 05/26/22 16:42 Urine Glucose (UA) Negative mg/dL (Negative) 05/26/22 16:42 Urine Ketones Negative mg/dL (Negative) 05/26/22 16:42 Urine Blood Negative (Negative) 05/26/22 16:42 Urine Nitrite Negative (Negative) 05/26/22 16:42 Ur Reducing Substances Not Reportable 05/26/22 16:42 Urine Bilirubin Negative (Negative) 05/26/22 16:42 Urine Ictotest Not Reportable 05/26/22 16:42 Urine Urobilinogen < 2.0 mg/dL (<2.0) 05/26/22 16:42 Ur Leukocyte Esterase Negative (Negative) 05/26/22 16:42 Urine WBC (Auto) 156.0 /HPF (0.0-6.0) H 05/26/22 16:42 Urine RBC (Auto) 13.0 /HPF (0.0-6.0) 05/26/22 16:42 U Epithel Cells (Auto) 7.0 /HPF (0-13.0) 05/26/22 16:42 Urine Bacteria (Auto) 1+ /HPF (Negative) 05/26/22 16:42 Urine WBC Clumps 2+ /HPF 05/26/22 16:42 Urine Mucus 3+ /HPF 05/26/22 16:42 Urine Yeast (Budding) 1+ /HPF 05/26/22 16:42 Salicylates < 0.3 mg/dL (2.8-20.0) L 05/26/22 12:15 Urine Opiates Screen Negative 05/26/22 16:42 Urine Methadone Screen Negative 05/26/22 16:42 Acetaminophen 5.0 ug/mL (10.0-30.0) L 05/27/22 06:12 Ur Barbiturates Screen Negative 05/26/22 16:42 Ur Phencyclidine Scrn Negative 05/26/22 16:42 Ur Amphetamines Screen Positive 05/26/22 16:42 U Benzodiazepines Scrn Negative 05/26/22 16:42 Urine Cocaine Screen Negative 05/26/22 16:42 U Marijuana (THC) Screen Negative 05/26/22 16:42 Drugs of Abuse Note Disclamer 05/26/22 16:42 Plasma/Serum Alcohol < 0.01 % (0-0.07) 05/26/22 12:15 Vidla/IV: Voiding Method Toilet Active Medications - Current Medications Current Medications: Generic Name Dose Route Start Last Admin Trade Name Freq PRN Reason Stop Dose Admin Albuterol 2.5 mg 05/26/22 14:00 Albuterol 2.5 Mg/3 Ml Nebu IH Q3HRT PRN Shortness Of Breath Aripiprazole 10 mg 05/29/22 11:00 05/31/22 09:40 Aripiprazole 10 Mg Tab PO 10 mg QDAY VANESSA Administration Hydromorphone HCl 0.5 mg 05/26/22 14:00 Hydromorphone 0.5 Mg/0.5 Ml Inj IV Q23H PRN Pain , Severe (7-10) Ibuprofen 600 mg 05/26/22 14:00 Ibuprofen 600 Mg Tab PO Q6H PRN Pain, Mild (1-3) Midodrine 2.5 mg 06/01/22 12:00 Midodrine 2.5 Mg Tab PO 06/03/22 18:00 TID@0800,1200,1600 VANESSA Morphine Sulfate 2 mg 05/26/22 14:00 Morphine 2 Mg/1 Ml Inj IV Q8H PRN Pain, Moderate (4-6) Ondansetron HCl 4 mg 05/26/22 16:19 Ondansetron 4 Mg/2 Ml Inj IV Q8H PRN Nausea And Vomiting Oxycodone/Acetaminophen 1 tab 05/26/22 14:00 Oxycodone /Acetaminophen 5-325mg Tab PO Q16H PRN Pain, Moderate (4-6) Sertraline HCl 50 mg 05/29/22 10:00 05/31/22 09:40 Sertraline 50 Mg Tab PO 50 mg QDAY VANESSA Administration Trazodone HCl 50 mg 05/27/22 22:00 05/31/22 22:35 Trazodone 50 Mg Tab PO 50 mg QHS VANESSA Administration Nutrition/Malnutrition Assess - Dietary Evaluation Nutrition/Malnutrition Findings: Nutrition Notes Start: 05/28/22 16:57 Freq: Status: Active Protocol: Document 05/28/22 16:57 ISAI (Rec: 05/28/22 17:13 ISAI [id number]) Nutrition Notes 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 Current Diet Regular Diet (since D 05/26). Labs/Tests 05/28: Cl 110.2, CO2 21, BUN 6 , Crea 0.6, Ca 8.2. Pertinent Medications 05/28: Nutritionally unremarkable. 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 Weight Status Appropriate Subjective/Other Information RD consult for skin risk assessment. Pt's PO intake of meals has been Good (75-100%) and well tolerated, according to ADL notes. Pt is on Room Air, O2 saturation @ 97%, according to Physical Assessment History notes. Code 1013 placed on 05/26, according to Progress notes. Pt shows no signs of concern for skin risk at the time, according to Physical Assessment History notes. Percent of energy/protein needs met: Prescribed Regular Diet provides for energy/protein needs (2,289 Kcal/89 g) during LOS. Burn Absent Trauma Absent GI Symptoms None Food Allergy No Skin Integrity/Comment Assessment WNL. 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 No Is Patient Ambulatory and/or Out of Bed Yes REE-([place]-ambulatory/OOB) [ 2151.760 [id number]] Kcal/Kg value to use for calculation 26 Approximate Energy Requirements Using 1887 kcal/Kg Calculation Used for Recommendations Kcal/kg Additional Notes Protein: 0.8-1 g/Kg ABW; 58-73 g/day. Fluids: 1 ml/Kcal, or as per MD. Nutrition Intervention Change Diet Order: Continue Regular Diet as tolerated. Follow-Up By: 06/04/22 Additional Comments Continue monitoring food tolerance, %PO intake of meals , and BM.
[2022-06-01] MEDS: ARIPiprazole 10 MG TAB PO SCH (12:19)
[2022-06-01] MEDS: MIDODRINE 2.5 MG TAB PO SCH ×2 (12:20→18:00)
[2022-06-01] MEDS: SERTRALINE 50 MG TAB PO SCH (12:20)
--- NOTE | 2022-06-01 12:54 | Progress Note ---
Subjective - Reason for Consult Consult date: 06/01/22 Reason for consult: OD - Chief Complaint Chief complaint: The patient was seen today. He is calm, cooperative. He states he is doing well. He continues to present with depressive affect however, he denies any current suicidal/homicidal ideation and denies hallucinations. REVIEW OF SYSTEMS Constitutional: Negative for weight loss ENT: Negative for stridor Respiratory: Negative for cough or hemoptysis All other systems reviewed and are negative MENTAL STATUS EXAMINATION General Appearance and Behavior: Age appropriate, good hygiene, wearing appropriate clothes. calm, cooperative Cooperation: Cooperative Psychomotor Behavior: Psychomotor normal Mood: depressed Affect and affective range: congruent with stated mood Thought Process: goal directed Thought Content: reality oriented Speech: Normal tone and pace Suicidal Ideation: Denies Homicidal Ideation: Denies Hallucinations: Denies Delusions: none elicited Impulse Control: Poor Insight and Judgment: limited insight and poor judgment Memory: Limited Attention: attentive Orientation: a/o Assessment (1) Major Depressive Disorder (2) Intentional Overdose of Acetaminophen (3) Amphetamine Use Disorder Treatment Plan 1013 Zoloft 50mg po daily Abilify 10mg po daily Trazodone 50mg po qhs Medical: per primary Sitter: defer to primary Disposition: Recommend acute psychiatric inpatient treatment Will follow Thanks Case staffed with Dr. Loza Mental Status Exam - Vital signs Last Vital Signs Temp 98.4 F 06/01/22 08:30 Pulse 57 L 06/01/22 08:30 Resp 16 06/01/22 08:30 BP 101/60 06/01/22 08:30 Pulse Ox 97 06/01/22 08:30
[2022-06-01] MEDS: traZODone 50 MG TAB PO SCH (22:20)
[2022-06-02] MEDS: MIDODRINE 2.5 MG TAB PO SCH ×2 (09:00→14:07)
--- NOTE | 2022-06-02 11:35 | Progress Note ---
Assessment and Plan Assessment and plan: 31 YO Male with MDD with prior Suicide Attempt presents to ED for evaluation. Patient reports "I took a bunch of pills". Patient states that he ingested approximately 20 Tylenol 500 mg tablets within the past 1 hour in an attempt to take his own life. Patient knowledges feeling depressed, hopeless, and does not have the will to live. EMS was notified and upon arrival the patient was found to be in distress and subsequently transported to [facility] for further care and evaluation of the aforementioned symptoms. The patient was seen and evaluated in the emergency department. All lab and imaging studies reviewed. Patient found to have elevated acetaminophen levels after 1 hour. Patient found to have Tylenol toxicity secondary to Tylenol overdose in a suicide attempt. A 1013 was placed. The patient was admitted to [facility] due to increased risk of worsening symptoms after medical stabilization. Poison control notified. No reports of fever, chills, chest pain, palpitation, productive cough, skin rash, recent contact, known exposure to COVID-19. No prior admission for review. No medication listed at time of admission for reconciliation. Advanced care planning conducted in ED. 05/27: Patient seen and examined discussed extensively still feels suicidal. Of gone ahead to consult psych team for further management. Continue 1013 at this time until evaluated by psych team. Also discussed her CODE STATUS with the patient for 35 minutes discussing the impact of his clinical condition and also the decision he made he verbalized understanding wants to be full code. Preventive care discussion had with the patient on liver management major depression social support services that is available patient verbalized understanding. He says he has a supportive family 05/28: Repeat Tylenol level is normalized. Patient was seen by psych recommended inpatient psych placement. I understand from the nurse that the has some concerns about starting medication we will discuss with the spouse and also with the psych team. Awaiting placement or revocation by psych team. Was noted today to have pyuria although no symptoms although sometimes complains of pain with urination. We will treat empirically with Keflex for 3 days. For now continue 1013 Discussed with the , she is concerned about the patient coming home and does not feel the patient is in the right frame of mind. She also wanted to know if the Depakote can be changed to Abilify 05/29: Patient clinically stable for discharge. Awaiting placement at this time continue current management 05/30: Patient medically stable for discharge awaiting psych placement at this time. Continue supportive care. Again explained to the patient his current medical management. He verbalized understanding. 05/31: Patient seen and examined no acute distress resting comfortably. Clinically stable for discharge awaiting place 06/01: Remains under 1013 watch. Clinically stable for discharge. 06/02: Patient is clinically stable for discharge remains on 1013 watch. The patient clinically runs a low blood pressure and is asymptomatic, he has adequate response to ambulation regards to his bradycardia. I have placed him on midodrine at this time to assist with placement. (1) Tylenol toxicityintentional overdose of acetaminophen Current Visit: Yes Status: Acute Qualifiers: Encounter type: initial encounter Injury intent: intentional self-harm Qualified Code(s): T39.1X2A - Poisoning by 4-Aminophenol derivatives, intentional self-harm, initial encounter Plan to address problem: Post control notified, initiate therapy with Mucomyst, serial acetaminophen levels, IV fluid resuscitation therapy as clinical indicated, supportive care. Psych consult (2) Suicide attempt Current Visit: Yes Status: Acute Plan to address problem: 1013 in place, mental health team consulted. (3) Major depression Current Visit: Yes Status: Acute Qualifiers: Major depression episode severity: severe Plan to address problem: Mental health team consulted, supportive care, one-to-one sitter. (4) amphetamine abuse (5) acute cystitis (6) DVT prophylaxis Current Visit: Yes Status: Acute Plan to address problem: SCDs bilateral lower extremities while in bed (7) Advance care planning Current Visit: Yes Status: Acute Plan to address problem: Disease education conducted, care plan discussed, diagnoses discussed, prognosis discussed, patient is full code, +30 minutes. (8) Preventative health care Current Visit: Yes Status: Acute Plan to address problem: Patient counseled regarding risk factor reduction, safe driving, outpatient [facility] follow-up, outpatient follow-up with primary care physician for all age and risk factor appropriate screening test. +30 minutes. History Interval history: Patient seen and examined this morning denies any chest pain nausea vomiting. Wants to know when he will be discharged. Patient is totally asymptomatic chronically runs low blood pressure. Hospitalist Physical - Physical exam Narrative exam: VITAL SIGNS: Reviewed. GENERAL: The patient appears normally developed, Vital signs as documented. HEAD: No signs of head trauma. EYES: Pupils are equal. Extraocular motions intact. EARS: Hearing grossly intact. MOUTH: Oropharynx is normal. NECK: No adenopathy, no JVD. CHEST: Chest with clear breath sounds bilaterally. No wheezes, rales, or rhonchi. CARDIAC: Regular rate and rhythm. S1 and S2, without murmurs, gallops, or rubs. VASCULAR: No Edema. Peripheral pulses normal and equal in all extremities. ABDOMEN: Soft, non tender and non distended. No rebound or guarding, and no masses palpated. Bowel Sounds normal. MUSCULOSKELETAL: Good range of motion of all major joints. Extremities without clubbing, cyanosis or edema. NEUROLOGIC EXAM: Alert and oriented x 3 No focal sensory or strength deficits. Speech normal. Follows commands. PSYCHIATRIC: Mood normal. SKIN: detail exam as documented in skin assessment - Constitutional Vitals: Temp Pulse Resp BP Pulse Ox 98.0 F 52 L 18 98/56 95 06/02/22 08:13 06/02/22 08:13 06/02/22 08:13 06/02/22 08:13 06/02/22 08:13 General appearance: Present: mild distress HEART Score - HEART Score Troponin: Troponin T < 0.010 ng/mL (0.00-0.029) 05/26/22 12:03 Results - Labs CBC & Chem 7: 05/27/22 04:13 05/27/22 04:13 Labs: Laboratory Last Values WBC 9.0 K/mm3 (4.5-11.0) 05/27/22 04:13 RBC 4.25 M/mm3 (3.65-5.03) 05/27/22 04:13 Hgb 12.9 gm/dl (11.8-15.2) 05/27/22 04:13 Hct 40.2 % (35.5-45.6) 05/27/22 04:13 MCV 95 fl (84-94) H 05/27/22 04:13 MCH 30 pg (28-32) 05/27/22 04:13 MCHC 32 % (32-34) 05/27/22 04:13 RDW 14.6 % (13.2-15.2) 05/27/22 04:13 Plt Count 206 K/mm3 (140-440) 05/27/22 04:13 Lymph % (Auto) 29.4 % (13.4-35.0) 05/27/22 04:13 Esmeralda % (Auto) 7.8 % (0.0-7.3) H 05/27/22 04:13 Eos % (Auto) 1.3 % (0.0-4.3) 05/27/22 04:13 Baso % (Auto) 0.6 % (0.0-1.8) 05/27/22 04:13 Lymph # (Auto) 2.7 K/mm3 (1.2-5.4) 05/27/22 04:13 Esmeralda # (Auto) 0.7 K/mm3 (0.0-0.8) 05/27/22 04:13 Eos # (Auto) 0.1 K/mm3 (0.0-0.4) 05/27/22 04:13 Baso # (Auto) 0.1 K/mm3 (0.0-0.1) 05/27/22 04:13 Seg Neutrophils % 60.9 % (40.0-70.0) 05/27/22 04:13 Seg Neutrophils # 5.5 K/mm3 (1.8-7.7) 05/27/22 04:13 PT 15.6 Sec. (12.2-14.9) H 05/27/22 09:30 INR 1.11 (0.87-1.13) 05/27/22 09:30 Sodium 139 mmol/L (137-145) 05/27/22 04:13 Potassium 3.7 mmol/L (3.6-5.0) 05/27/22 04:13 Chloride 110.2 mmol/L (98-107) H 05/27/22 04:13 Carbon Dioxide 21 mmol/L (22-30) L 05/27/22 04:13 Anion Gap 12 mmol/L 05/27/22 04:13 BUN 6 mg/dL (9-20) L 05/27/22 04:13 Creatinine 0.6 mg/dL (0.8-1.3) L 05/27/22 04:13 Estimated GFR > 60 ml/min 05/27/22 04:13 BUN/Creatinine Ratio 10 % 05/27/22 04:13 Glucose 88 mg/dL (75-100) 05/27/22 04:13 Calcium 8.2 mg/dL (8.4-10.2) L 05/27/22 04:13 Total Bilirubin 0.30 mg/dL (0.1-1.2) 05/27/22 09:30 Direct Bilirubin < 0.2 mg/dL (0-0.2) 05/27/22 09:30 Indirect Bilirubin 0.1 mg/dL 05/27/22 09:30 AST 21 units/L (5-40) 05/27/22 09:30 ALT 19 units/L (7-56) 05/27/22 09:30 Alkaline Phosphatase 55 units/L (35-129) 05/27/22 09:30 Total Creatine Kinase 181 units/L (55-170) H 05/26/22 12:03 Troponin T < 0.010 ng/mL (0.00-0.029) 05/26/22 12:03 Total Protein 5.4 g/dL (6.3-8.2) L 05/27/22 09:30 Albumin 3.5 g/dL (3.9-5) L 05/27/22 09:30 Albumin/Globulin Ratio 1.8 % 05/27/22 09:30 Urine Color Yellow (Yellow) 05/26/22 16:42 Urine Turbidity Hazy (Clear) 05/26/22 16:42 Urine pH 6.0 (5.0-7.0) 05/26/22 16:42 Ur Specific [place] 1.020 (1.003-1.030) 05/26/22 16:42 Urine Protein 30 mg/dl mg/dL (Negative) 05/26/22 16:42 Urine Glucose (UA) Negative mg/dL (Negative) 05/26/22 16:42 Urine Ketones Negative mg/dL (Negative) 05/26/22 16:42 Urine Blood Negative (Negative) 05/26/22 16:42 Urine Nitrite Negative (Negative) 05/26/22 16:42 Ur Reducing Substances Not Reportable 05/26/22 16:42 Urine Bilirubin Negative (Negative) 05/26/22 16:42 Urine Ictotest Not Reportable 05/26/22 16:42 Urine Urobilinogen < 2.0 mg/dL (<2.0) 05/26/22 16:42 Ur Leukocyte Esterase Negative (Negative) 05/26/22 16:42 Urine WBC (Auto) 156.0 /HPF (0.0-6.0) H 05/26/22 16:42 Urine RBC (Auto) 13.0 /HPF (0.0-6.0) 05/26/22 16:42 U Epithel Cells (Auto) 7.0 /HPF (0-13.0) 05/26/22 16:42 Urine Bacteria (Auto) 1+ /HPF (Negative) 05/26/22 16:42 Urine WBC Clumps 2+ /HPF 05/26/22 16:42 Urine Mucus 3+ /HPF 05/26/22 16:42 Urine Yeast (Budding) 1+ /HPF 05/26/22 16:42 Salicylates < 0.3 mg/dL (2.8-20.0) L 05/26/22 12:15 Urine Opiates Screen Negative 05/26/22 16:42 Urine Methadone Screen Negative 05/26/22 16:42 Acetaminophen 5.0 ug/mL (10.0-30.0) L 05/27/22 06:12 Ur Barbiturates Screen Negative 05/26/22 16:42 Ur Phencyclidine Scrn Negative 05/26/22 16:42 Ur Amphetamines Screen Positive 05/26/22 16:42 U Benzodiazepines Scrn Negative 05/26/22 16:42 Urine Cocaine Screen Negative 05/26/22 16:42 U Marijuana (THC) Screen Negative 05/26/22 16:42 Drugs of Abuse Note Disclamer 05/26/22 16:42 Plasma/Serum Alcohol < 0.01 % (0-0.07) 05/26/22 12:15 Vidal/IV: Voiding Method Toilet Active Medications - Current Medications Current Medications: Generic Name Dose Route Start Last Admin Trade Name Freq PRN Reason Stop Dose Admin Albuterol 2.5 mg 05/26/22 14:00 Albuterol 2.5 Mg/3 Ml Nebu IH Q3HRT PRN Shortness Of Breath Aripiprazole 10 mg 05/29/22 11:00 06/01/22 12:19 Aripiprazole 10 Mg Tab PO 10 mg QDAY VANESSA Administration Ibuprofen 600 mg 05/26/22 14:00 Ibuprofen 600 Mg Tab PO Q6H PRN Pain, Mild (1-3) Midodrine 5 mg 06/01/22 21:21 Midodrine 2.5 Mg Tab PO 06/03/22 18:00 TID@0800,1200,1600 VANESSA Morphine Sulfate 2 mg 05/26/22 14:00 Morphine 2 Mg/1 Ml Inj IV Q8H PRN Pain, Moderate (4-6) Ondansetron HCl 4 mg 05/26/22 16:19 Ondansetron 4 Mg/2 Ml Inj IV Q8H PRN Nausea And Vomiting Oxycodone/Acetaminophen 1 tab 05/26/22 14:00 Oxycodone /Acetaminophen 5-325mg Tab PO Q16H PRN Pain, Moderate (4-6) Sertraline HCl 50 mg 05/29/22 10:00 06/01/22 12:20 Sertraline 50 Mg Tab PO 50 mg QDAY VANESSA Administration Trazodone HCl 50 mg 05/27/22 22:00 06/01/22 22:20 Trazodone 50 Mg Tab PO 50 mg QHS VANESSA Administration Nutrition/Malnutrition Assess - Dietary Evaluation Nutrition/Malnutrition Findings: Nutrition Notes Start: 05/28/22 16:57 Freq: Status: Active Protocol: Document 05/28/22 16:57 ISAI (Rec: 05/28/22 17:13 ISAI [id number]) Nutrition Notes Need for Assessment generated from: crystal cutter Initial or Follow up Assessment Other Pertinent Diagnosis Suicide Attempt, OTC Drug Overdose, Depression, Cystitis . Current Diet Regular Diet (since D 05/26). Labs/Tests 05/28: Cl 110.2, CO2 21, BUN 6 , Crea 0.6, Ca 8.2. Pertinent Medications 05/28: Nutritionally unremarkable. 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 Weight Status Appropriate Subjective/Other Information RD consult for skin risk assessment. Pt's PO intake of meals has been Good (75-100%) and well tolerated, according to ADL notes. Pt is on Room Air, O2 saturation @ 97%, according to Physical Assessment History notes. Code 1013 placed on 05/26, according to Progress notes. Pt shows no signs of concern for skin risk at the time, according to Physical Assessment History notes. Percent of energy/protein needs met: Prescribed Regular Diet provides for energy/protein needs (2,289 Kcal/89 g) during LOS. Burn Absent Trauma Absent GI Symptoms None Food Allergy No Skin Integrity/Comment Assessment WNL. 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 No Is Patient Ambulatory and/or Out of Bed Yes REE-([facility]-ambulatory/OOB) [ 2151.760 [id number]] Kcal/Kg value to use for calculation 26 Approximate Energy Requirements Using 1887 kcal/Kg Calculation Used for Recommendations Kcal/kg Additional Notes Protein: 0.8-1 g/Kg ABW; 58-73 g/day. Fluids: 1 ml/Kcal, or as per MD. Nutrition Intervention Change Diet Order: Continue Regular Diet as tolerated. Follow-Up By: 06/04/22 Additional Comments Continue monitoring food tolerance, %PO intake of meals , and BM.
--- NOTE | 2022-06-02 12:56 | Progress Note ---
Subjective - Reason for Consult Consult date: 06/02/22 Reason for consult: Overdose - Chief Complaint Chief complaint: The patient was seen today. He is calm, cooperative. He states he is doing well. He is feeling hopeful. He reports having good conversation with his . He reports that appetite and sleep are good. He denies any current suicidal/homicidal ideation and denies hallucinations. REVIEW OF SYSTEMS Constitutional: Negative for weight loss ENT: Negative for stridor Respiratory: Negative for cough or hemoptysis All other systems reviewed and are negative MENTAL STATUS EXAMINATION General Appearance and Behavior: Age appropriate, good hygiene, wearing appropriate clothes. calm, cooperative Cooperation: Cooperative Psychomotor Behavior: Psychomotor normal Mood: calm/well Affect and affective range: congruent with stated mood Thought Process: goal directed Thought Content: reality oriented Speech: Normal tone and pace Suicidal Ideation: Denies Homicidal Ideation: Denies Hallucinations: Denies Delusions: none elicited Impulse Control: Good Insight and Judgment:Good Memory: Good Attention: attentive Orientation: a/o Assessment (1) Major Depressive Disorder (2) Intentional Overdose of Acetaminophen (3) Amphetamine Use Disorder Treatment Plan [id number] Continue with: Zoloft 50mg po daily Abilify 10mg po daily Trazodone 50mg po qhs Medical: per primary Sitter: defer to primary Disposition: Recommend acute psychiatric inpatient treatment Will follow Thanks Case staffed with Dr. Loza Mental Status Exam - Vital signs Last Vital Signs Temp 98.0 F 06/02/22 08:13 Pulse 52 L 06/02/22 08:13 Resp 18 06/02/22 08:13 BP 98/56 06/02/22 08:13 Pulse Ox 95 06/02/22 08:13
[2022-06-02] MEDS: ARIPiprazole 10 MG TAB PO SCH (14:17)
[2022-06-02] MEDS: SERTRALINE 50 MG TAB PO SCH (14:18)
[2022-06-02 16:07] VITALS: BP 99/62
--- NOTE | 2022-06-02 18:04 | Discharge Summary ---
Providers - Providers Date of Admission: 05/26/22 13:31 Attending physician: DOC VILLAR MD 05/27/22 11:23 Consult to Mental Health [CONS] Routine Reason For Exam: suicidal ideation Primary care physician: DOG HANDLER Hospitalization Reason for admission: tylenol overdose Condition: Stable Hospital course: 31 YO Male with MDD with prior Suicide Attempt presents to ED for evaluation. Patient reports "I took a bunch of pills". Patient states that he ingested approximately 20 Tylenol 500 mg tablets within the past 1 hour in an attempt to take his own life. Patient knowledges feeling depressed, hopeless, and does not have the will to live. EMS was notified and upon arrival the patient was found to be in distress and subsequently transported to [facility] for further care and evaluation of the aforementioned symptoms. The patient was seen and evaluated in the emergency department. All lab and imaging studies reviewed. Patient found to have elevated acetaminophen levels after 1 hour. Patient found to have Tylenol toxicity secondary to Tylenol overdose in a suicide attempt. A 1013 was placed. The patient was admitted to [facility] due to increased risk of worsening symptoms after medical stabilization. Poison control notified. No reports of fever, chills, chest pain, palpitation, productive cough, skin rash, recent contact, known exposure to COVID-19. No prior admission for review. No medication listed at time of admission for reconciliation. Advanced care planning conducted in ED. 05/27: Patient seen and examined discussed extensively still feels suicidal. Of gone ahead to consult psych team for further management. Continue 1013 at this time until evaluated by psych team. Also discussed her CODE STATUS with the patient for 35 minutes discussing the impact of his clinical condition and also the decision he made he verbalized understanding wants to be full code. Preventive care discussion had with the patient on liver management major depression social support services that is available patient verbalized understanding. He says he has a supportive family 05/28: Repeat Tylenol level is normalized. Patient was seen by psych recommended inpatient psych placement. I understand from the nurse that the has some concerns about starting medication we will discuss with the spouse and also with the psych team. Awaiting placement or revocation by psych team. Was noted today to have pyuria although no symptoms although sometimes complains of pain with urination. We will treat empirically with Keflex for 3 days. For now continue 1013 Discussed with the , she is concerned about the patient coming home and does not feel the patient is in the right frame of mind. She also wanted to know if the Depakote can be changed to Abilify 05/29: Patient clinically stable for discharge. Awaiting placement at this time continue current management 05/30: Patient medically stable for discharge awaiting psych placement at this time. Continue supportive care. Again explained to the patient his current medical management. He verbalized understanding. 05/31: Patient seen and examined no acute distress resting comfortably. Clinically stable for discharge awaiting place 06/01: Remains under 1013 watch. Clinically stable for discharge. 06/02: Patient is clinically stable for discharge remains on 1013 watch. The patient clinically runs a low blood pressure and is asymptomatic, he has adequate response to ambulation regards to his bradycardia. I have placed him on midodrine at this time to assist with placement. Mental health did come back and subsequently cleared the patient for discharge. They provided the patient with outpatient resources. (1) Tylenol toxicityintentional overdose of acetaminophen Current Visit: Yes Status: Acute Qualifiers: Encounter type: initial encounter Injury intent: intentional self-harm Qualified Code(s): T39.1X2A - Poisoning by 4-Aminophenol derivatives, intentional self-harm, initial encounter Plan to address problem: Post control notified, initiate therapy with Mucomyst, serial acetaminophen levels, IV fluid resuscitation therapy as clinical indicated, supportive care. Psych consult (2) Suicide attempt Current Visit: Yes Status: Acute Plan to address problem: 1013 in place, mental health team consulted. (3) Major depression Current Visit: Yes Status: Acute Qualifiers: Major depression episode severity: severe Plan to address problem: Mental health team consulted, supportive care, one-to-one sitter. (4) amphetamine abuse (5) acute cystitis (6) DVT prophylaxis Current Visit: Yes Status: Acute Plan to address problem: SCDs bilateral lower extremities while in bed (7) Advance care planning Current Visit: Yes Status: Acute Plan to address problem: Disease education conducted, care plan discussed, diagnoses discussed, prognosis discussed, patient is full code, +30 minutes. (8) Preventative health care Current Visit: Yes Status: Acute Plan to address problem: Patient counseled regarding risk factor reduction, safe driving, outpatient mental health follow-up, outpatient follow-up with primary care physician for all age and risk factor appropriate screening test. +30 minutes. Disposition: 01 HOME / SELF CARE / HOMELESS Final Discharge Diagnosis (Prints w/discharge instructions): Tylenol toxicityintentional overdose of acetaminophen Time spent for discharge: 35 mins Core Measure Documentation - Palliative Care Palliative Care/ Comfort Measures: Not Applicable - Core Measures Any of the following diagnoses?: none Exam - Physical Exam Narrative exam: VITAL SIGNS: Reviewed. GENERAL: The patient appears normally developed, Vital signs as documented. HEAD: No signs of head trauma. EYES: Pupils are equal. Extraocular motions intact. EARS: Hearing grossly intact. MOUTH: Oropharynx is normal. NECK: No adenopathy, no JVD. CHEST: Chest with clear breath sounds bilaterally. No wheezes, rales, or rhonchi. CARDIAC: Regular rate and rhythm. S1 and S2, without murmurs, gallops, or rubs. VASCULAR: No Edema. Peripheral pulses normal and equal in all extremities. ABDOMEN: Soft, non tender and non distended. No rebound or guarding, and no masses palpated. Bowel Sounds normal. MUSCULOSKELETAL: Good range of motion of all major joints. Extremities without clubbing, cyanosis or edema. NEUROLOGIC EXAM: Alert and oriented x 3 No focal sensory or strength deficits. Speech normal. Follows commands. PSYCHIATRIC: Mood normal. SKIN: detail exam as documented in skin assessment - Constitutional Vitals: Temp Pulse Resp BP Pulse Ox 98.4 F 59 L 6 L 99/62 96 06/02/22 15:50 06/02/22 15:50 06/02/22 15:50 06/02/22 15:50 06/02/22 15:50 Plan Activity: advance as tolerated, fall precautions Diet: low fat Special Instructions: record daily weights, record daily BP diary Follow up with: ANDREA HERCULES MD [Primary Care Provider] - 7 Days MARY MULLINS MD [Staff Physician] - 7 Days Prescriptions: traZODone [Desyrel] 50 mg PO QHS 30 Days #30 tab ARIPiprazole [Abilify] 10 mg PO DAILY 30 Days #30 tab Sertraline [Zoloft] 50 mg PO QDAY 30 Days #30
== END 2022-06-02 18:45 | disposition home or self-care (01) | DRG 918 ==
LOC: ED 11:45 → IMCU 13:31 → 4A 05-28 10:59
PROVIDERS: ADMIT Internal Medicine; ATTEND Internal Medicine
PROC: 06HY33Z Insertion of Infusion Device into Lower Vein, Percutaneous Approach (ICD-10-PCS; principal; 2022-05-26)
PROC: B54BZZA Ultrasonography of Right Lower Extremity Veins, Guidance (ICD-10-PCS; 2022-05-26)
DX: T39.1X2A Poisoning by 4-Aminophenol derivatives, intentional self-harm, initial encounter (principal); N30.00 Acute cystitis without hematuria; F32.9 Major depressive disorder, single episode, unspecified; F15.10 Other stimulant abuse, uncomplicated; Y92.89 Other specified places as the place of occurrence of the external cause; Z82.49 Family history of ischemic heart disease and other diseases of the circulatory system
CPT/HCPCS: 36415; 71045; 80053; 80076; 80307; 80320; 81001; 82550; 84484; 85025; 85610; 93005; 99406; G0378; J3490; J7060; G0480; J0132; J7030; J7070